=== PATIENT | female | born 1980 | race Caucasian/White ===

== ENCOUNTER 2016-12-06 15:49 | Emergency (ER) | payer OTHER ==
--- NOTE | 2016-12-06 15:58 | ERNOTE ---
Chest Pain/Cardiac HPI Date of Service: 12/06/16 Chief Complaint: Chest Pain Time Seen by Provider: 12/06/16 15:58 Source: patient Exam Limitations: no limitations Immunizations: IMMUNIZATION HX Immunizations Up to Date Yes History of Influenza Vaccine Yes Hx Pneumococcal Vaccination No Allergies/Adverse Reactions: Allergies lactase [From Dairy Aid] Allergy (Mild, Verified 12/06/16 16:13) DAIRY PRODUCTS CAUSE HIVES yeast, dried [yeast] Allergy (Mild, Verified 12/06/16 16:13) Hives alcohol Allergy (Unknown, Verified 12/06/16 16:13) atomoxetine HCl [From Strattera] Adverse Reaction (Intermediate, Verified 16:13) CHEST PAIN, DIZZINESS bupropion HCl [From Wellbutrin] Adverse Reaction (Intermediate, Verified 16:13) SEIZURES gluten Adverse Reaction (Intermediate, Verified 12/06/16 16:13) MIGRAINES, CHEST TIGHTNESS paroxetine HCl [From Paxil] Adverse Reaction (Intermediate, Verified 12/06/16 16 :13) DYSPNEA wheat Adverse Reaction (Intermediate, Verified 12/06/16 16:13) MIGRAINES, CHEST TIGHTNESS amoxicillin trihydrate [From Augmentin] Adverse Reaction (Mild, Verified 16:13) GI DISTRESS potassium clavulanate [From Augmentin] Adverse Reaction (Mild, Verified 16:13) GI DISTRESS Home Medications: HOME MEDICATIONS Cholecalciferol (Vitamin D3) [Vitamin D3] 20,000 mg PO DAILY 04/08/15 [Last Taken 04/10/15] Cyanocobalamin [Vitamin B-12] 1,000 mcg IJ Q15D 04/08/15 [Last Taken 03/30/15] Dexamethasone 1 mg PO BID PRN 04/08/15 [Last Taken Unknown] EPINEPHrine [Epipen] 0.3 mg IM ONCE PRN 04/08/15 [Last Taken Unknown] Fluticasone Propionate [Flonase] 2 spray NS DAILY PRN 02/29/16 [Last Taken Unknown] Ondansetron HCl [Zofran] 1 - 2 tab PO Q8H PRN 02/29/16 [Last Taken Unknown] tiZANidine HCL [Zanaflex] 4 mg PO Q8H PRN 02/29/16 [Last Taken Unknown] Duloxetine HCl [Cymbalta] 60 mg PO DAILY 04/10/16 [Last Taken Unknown] Montelukast Sodium [Singulair] 10 mg PO HS 04/10/16 [Last Taken Unknown] oxyCODONE HCL/ACETAMINOPHEN [Percocet 5 MG/325 MG] 1 tab PO Q6H PRN #20 tablet 05/08/16 [Last Taken Unknown] Ciprofloxacin HCl [Cipro] 500 mg PO BID 12/06/16 [Last Taken Unknown] Metoprolol Tartrate [Lopressor] 50 mg PO BID #30 tablet 12/06/16 [Last Taken Unknown] Topiramate [Topamax] 100 mg PO HS 12/06/16 [Last Taken Unknown] metroNIDAZOLE [Flagyl] 500 mg PO TID 12/06/16 [Last Taken Unknown] Narrative: pt went to [place] over [place] and had what sounds like a gastritis. She had emesis with leonardo of blood and blood mixed in the stool. She has subsequently developed diarrhea that is negative for c.diff and a UTI. She is currently on cipro and flagyl for the UTI and diarrhea. 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 Yest and today she noted SOB with exertion and today at 2:30PM she developed anterior chest pressure. She also noticed that her HR was in the 130s. Pt has h/o SVT usually with that is in the 170s. Pt has been in a walking boot for the past several weeks for a heel fx Date (Duration): 12/06/16 Time (Timing): 14:30 Timing: constant Severity/Quality: moderate, pressure Location: substernal, central Chest Pain Radiation: no radiation Activities at Onset: none Modifying Factors - Improves: Present: breathing, movement Nitro Today/Relief: no nitro taken today Aspirin Treatment Today: no aspirin today Associated Symptoms: Present: dizziness, shortness of breath, palpitations, nausea. Absent: fever/chills, vomiting, abdominal pain, weakness, back pain, swelling/lump in chest Prior Chest Pain/Cardiac Workup: Reports: prior chest pain Review of Systems - Review of Systems Constitutional: Present: weakness, malaise EYE: Present: no symptoms reported ENT: Present: no symptoms reported Respiratory: Present: no symptoms reported, shortness of breath Cardiology: Present: chest pain Gastrointestinal/Abdominal: Present: nausea Genitourinary: Present: no symptoms reported Musculoskeletal: Present: no symptoms reported Skin: Present: no symptoms reported Neurological: Present: no symptoms reported Endocrine: Present: no symptoms reported Hematologic/Lymphatic: Present: no symptoms reported Psych: Present: no symptoms reported - Patient's Past Medical History Patient History - Medical: Anemia, Depression, Seizures Patient History - Cancer: No Hx of Cancer Patient History - Surgical Procedures: Appendectomy, Cholecystectomy, Colonoscopy, D & C, Hysterectomy, Tubal Ligation, Other - Family History Mother Family History - Medical: No pertinent hx, Hypothyroidism Family History - Cardiac/Respiratory: CVA/Stroke, Deep Vein Thrombosis, Hypertension, Hyperlipidemia Father Family History - Medical: No pertinent hx Family History - Cardiac/Respiratory: Coronary Heart Disease, Hypertension, Hyperlipidemia, Sleep Apnea Grandmother-Maternal Family History - Medical: , No pertinent hx Family History - Cardiac/Respiratory: No pertinent hx Grandfather-Maternal Family History - Medical: , No pertinent hx Family History - Cardiac/Respiratory: Atrial Fibrillation, Coronary Heart Disease, CHF, Hypertension, Hyperlipidemia Grandmother-Paternal Family History - Medical: , Diabetes Type 2 Insulin Dependent Family History - Cardiac/Respiratory: Coronary Heart Disease - father has HTN and stents, Other - CVA with mom sec to polycythemia - Social History Living Situations: home Smoking Status: Never smoker Alcohol Use: none Drug Use: none Physical Exam - Physical Exam General Appearance: Present: alert, no apparent distress Eye Exam: Normal inspection: bilateral Ears, Nose, Throat: Present: normal ENT inspection Neck: Present: normal inspection Respiratory: Present: no respiratory distress Cardiovascular/Chest: Present: regular rate, rhythm, no murmur, tachycardia Gastrointestinal/Abdominal: Present: normal bowel sounds, nontender, nondistended, soft Back Exam: Present: normal inspection, normal range of motion, no CVA tenderness Extremity Exam: Present: normal inspection Neurological Exam: Present: alert, oriented, normal mood/affect Skin Exam: Present: normal color Lymphatic Exam: Present: no adenopathy ED Progress - Results and Orders Patient's Lab Results:: I have reviewed the patient's lab results. - Vital Signs Patient's Vital Signs:: I have reviewed the patient's vital signs. - EKG EKG: other - sinus tachycardia 121 BPM. possible old anterior mI and inferior of indeterminate age Plan - Plan Plan: Pt to f/u with PMD. Will add metoprolol to pt regimen Departure - Departure Clinical Impression: Chest pain of unknown etiology, Sinus tachycardia Disposition: Home self-care Condition: Stable Prescriptions: Metoprolol Tartrate [Lopressor] 50 mg PO BID #30 tablet
[2016-12-06] MEDS ORDERED: METOCLOPRAMIDE HCL 5 MG/ML VIAL IV ONE (16:54)
[2016-12-06] MEDS ORDERED: METOCLOPRAMIDE HCL 5 MG/ML VIAL ONE (17:25)
[2016-12-06 17:26] LABS: Hematocrit 43.1 % (37.0-47.0); Hemoglobin 14.7 gm/dL (12.5-16.0); Mean Cell Volume 87.6 fl (78-100); Mean Corpuscular Hemoglobin 29.9 pg (27-31); Mean Corpuscular Hgb Conc 34.1 g/dl (32-36); Neutrophil # 5.3 K/mm3 (1.3-6.0); Neutrophil % 58.8 % (42-75.0); Platelet Count 260 K/mm3 (150-450); Red Blood Count 4.92 M/mm3 (4.2-5.4); Red Cell Distribution Width 12.3 % (11.5-14.0)
[2016-12-06 17:45] LABS: Anion Gap 13.9 mmol/L (6.8-13.8); BUN/Creatinine Ratio 4.3 (9.0-21.6); Blood Urea Nitrogen 4 mg/dL (3-23); Calcium * 9.1 mg/dL (7.9-10.9); Carbon Dioxide 24.4 mmol/L (24-32.6); Chloride 106 mmol/L (97-106); Estimated Creat Clear 81.3; Glucose * 92 mg/dL (70-110); Potassium 3.3 mmol/L (3.4-4.6); Sodium 141 mmol/L (132-142); Troponin I Less than 0.017 ng/ml (0.00-0.10)
[2016-12-06] MEDS ORDERED: NITROGLYCERIN 0.4 MG/TAB BTL SL ONE (18:15)
[2016-12-06] MEDS ORDERED: MORPHINE SULFATE 10 MG/ML SYRG IV ONE (18:33)
[2016-12-06] MEDS ORDERED: MORPHINE SULFATE 10 MG/ML SYRG ONE (18:51)
[2016-12-06] MEDS ORDERED: METOPROLOL TARTRATE 1 MG/ML AMPUL IV ONE ×2 (19:52→19:54)
[2016-12-06 20:26] VITALS: BP 130/97
== END 2016-12-06 20:30 | disposition home or self-care (01) ==
LOC: ER 15:49
DX: R00.0 Tachycardia, unspecified (principal); R07.89 Other chest pain; Z90.710 Acquired absence of both cervix and uterus; Z90.49 Acquired absence of other specified parts of digestive tract; F32.9 Major depressive disorder, single episode, unspecified

== ENCOUNTER 2016-12-28 07:04 | Day surgery (SDC) | payer OTHER ==
[~2016-12-28 07:04] MED LIST: RINGERS SOLUTION,LACTATED 1,000 ML IV PRN
[2016-12-28] MEDS ORDERED: PANTOPRAZOLE SODIUM 40 MG/100 ML PIGGYBACK IV ONE (09:01)
[2016-12-28] MEDS ORDERED: PANTOPRAZOLE SODIUM 40 MG in NORMAL SALINE 100 ML IV ONE (09:15)
--- NOTE | 2016-12-28 09:17 | OR ---
Operative Report - Dictated Report Narrative: Operative Report Date of operation: 12/28/2015 Preoperative diagnosis: Hematemesis. Episode of rectal bleeding. Postoperative diagnosis: GE junction inflammation (pathology pending). Gastropathy with prepyloric erosions (pathology and CLOtest pending). Normal appearing colon to the proximal descending (random biopsy pending). External hemorrhoids Operation: EGD with biopsies. Flexible sigmoidoscopy of the proximal descending colon with random biopsy. Surgeon: Dr Anglin Anesthesia: RAMOS PINEDA CRNA Indications for procedure: The patient is a 36-year-old female presents self referred after an episode of hematemesis and an episode of rectal bleeding. CT scan suggested sigmoid and descending colon thickening. Findings: Possible underlying obstructive sleep apnea. Normal appearing esophagus with inflammation at the GE junction. Gastropathy with prepyloric erosions (pathology and CLOtest pending). Normal appearing duodenum. External hemorrhoids. Normal rectum and colon to the proximal descending colon (random biopsy pending) Narrative of procedure: The patient was identified preoperatively, and prior to the administration of anesthetic a multidisciplinary timeout was observed EGD: With the patient in the recumbent position, a bite-block was placed, intravenous sedation was administered, and the patient's eyes covered with a towel. The flexible fiberoptic gastroscope was advanced into the posterior pharynx which appeared normal. There was crowding of the structures which was relieved with jaw thrust maneuver. The supraglottic larynx appeared normal. The cords appeared normal, moved well, and opposed in the midline. The scope was advanced under direct vision into the proximal esophagus which appeared normal. The esophagus appeared freely distensible with normal mucosa. The esophageal mucosa appeared normal down to the gastroesophageal junction which was sharp with mild inflammation. The GE junction appeared normally distensible. The scope was advanced into the stomach which was insufflated with air. There was moderate garza gastropathy with erythema and multiple prepyloric erosions. The pylorus appeared patent. The scope was advanced into the duodenal bulb which appeared normal. The scope was advanced further to the horizontal portion of the duodenum which appeared normal, specifically the villous architecture appeared well preserved and clear bile was present. The scope was slowly withdrawn through the duodenal bulb with confirmation that no active ulcer was present. The scope was withdrawn into the stomach and kiosk sales representative biopsies of gastric mucosa obtained for CLOtest and pathology. The biopsy sites were seen to be hemostatic. The insufflated air was removed from the stomach, and the scope withdrawn to the GE junction which was biopsied. The biopsy site appeared hemostatic. The scope was withdrawn from the patient, and this portion of the procedure terminated. SIGMOIDOSCOPY: The patient was then placed in the left lateral position, and the perineum was inspected. There was no evidence of pilonidal disease or skin breakdown. The external appearance of the anus was normal with exception of engorged external hemorrhoids. There was no evidence of thrombosis or bleeding. Sphincter tone was good. The flexible fiberoptic colonoscope was inserted into the rectum which was insufflated with air. The rectal mucosa and submucosal vascular pattern appeared normal, the prep was seen to be complete. The scope was advanced through the sigmoid colon, up the descending colon. The mucosa at this level appeared normal. The scope was then slowly withdrawn in a circular fashion so that all aspects of distal colonic mucosa were inspected. The colon was normal in caliber however the folds appeared thickened when non-inflated which could mimic the appearance seen on CT scan.. The haustral architecture appeared well preserved throughout with no evidence of external compression. The mucosa and submucosal vascular pattern appeared normal, specifically there was no gross evidence to suggest colitis or inflammatory bowel disease and no AV malformations were seen. A random colon biopsy was obtained. The biopsy site was seen to be hemostatic. No diverticulosis was demonstrated. No polyps were encountered. The scope was gradually withdrawn to the level of the rectum. As much insufflated air as possible was removed. The scope was withdrawn from the patient and the procedure terminated. The patient tolerated the anesthetic and procedure well without complication and was transferred back to the ambulatory surgery area awake and in stable condition. The patient remained stable throughout a period of postoperative observation. She denied abdominal discomfort, was able to tolerate by mouth intake, and was up without assistance. I shared the operative findings with the patient and she was given copies of the photographs which appear in the medical record. She was given a single dose of Protonix 40 mg IV prior to discharge. She was discharged home with instructions not to engage in hazardous activity today, but may resume normal activity tomorrow, and advance diet as tolerated. She is to continue those medications as listed in the history and physical exam. I made arrangements to contact her with the biopsy reports and will make additional recommendations for treatment and follow-up based upon those results. Reviewed and electronically signed
[2016-12-28 10:06] VITALS: BP 128/83
== END 2016-12-28 07:05 | disposition home or self-care (01) ==
LOC: AMB 07:04
PROVIDERS: ATTEND Surgery
PROC: 0DB68ZX Excision of Stomach, Via Natural or Artificial Opening Endoscopic, Diagnostic (ICD-10-PCS; principal; 2016-12-28 08:00)
PROC: 0DBM8ZX Excision of Descending Colon, Via Natural or Artificial Opening Endoscopic, Diagnostic (ICD-10-PCS; 2016-12-28 08:00)
DX: K29.70 Gastritis, unspecified, without bleeding (principal); K52.9 Noninfective gastroenteritis and colitis, unspecified; K25.9 Gastric ulcer, unspecified as acute or chronic, without hemorrhage or perforation; K64.4 Residual hemorrhoidal skin tags; D50.9 Iron deficiency anemia, unspecified; F32.9 Major depressive disorder, single episode, unspecified; Z68.39 Body mass index [BMI] 39.0-39.9, adult

== ENCOUNTER 2017-01-10 10:23 | Day surgery (SDC) | payer OTHER ==
[~2017-01-10 10:23] MED LIST changes: +ceFAZolin SODIUM 1 GM VIAL IV PRN
[2017-01-10] MEDS ORDERED: SCOPOLAMINE HYDROBROMIDE 1.5 MG PATC TD ONE ×2 (10:56→11:12)
[2017-01-10] MEDS ORDERED: diphenhydrAMINE HCL 50 MG/ML VIAL IV PRN (10:57)
[2017-01-10] MEDS ORDERED: NALOXONE HCL 0.4 MG/ML VIAL IV PRN (10:57)
[2017-01-10] MEDS ORDERED: HYDROmorphone HCL 2 MG/ML VIAL IV PRN ×2 (10:57→15:50)
[2017-01-10] MEDS ORDERED: PROMETHAZINE HCL 12.5 MG in DEXTROSE 5 % IN WATER 50 ML IV PRN ×2 (10:57)
[2017-01-10] MEDS ORDERED: ONDANSETRON HCL/PF 2 MG/ML VIAL IV PRN (10:57)
[2017-01-10] MEDS ORDERED: RINGERS SOLUTION,LACTATED 1,000 ML IV ONE (13:20)
[2017-01-10] MEDS ORDERED: BUPIVACAINE HCL/EPINEPHRINE 50 ML VIAL IJ ONE (14:31)
--- NOTE | 2017-01-10 15:26 | OR ---
Operative Report - Dictated Report Narrative: Date: 01/10/2017 Surgeon: Zheng Reyes M.D. [employer] Teacher: Arcadio Cary PA-C Anesthesia: General plus local anesthesia Preoperative diagnosis: Right chronic ankle instability, chondral lesion of talus, peroneal tenosynovitis Postoperative diagnosis: Right chronic ankle instability, chondral lesion of talus, peroneal tenosynovitis with longitudinal tear of peroneus brevis Procedure: 1. Right ankle arthroscopy with microfracture of the talus 2. Modified Brostrom reconstruction of right ankle 3. Debridement of peroneal tendons with repair of peroneus brevis Estimated blood loss: Minimal Tourniquet time: 92 Minutes at 350 millimeters mercury Retained implants: [employer] 2.9 mm Bioraptor anchors 2, Arthro[employer] 1.8 mm all suture anchors 2 Specimens: None Complications: None Indications: Shellie is a 36-year-old female with a history of chronic ankle sprains and resultant ankle instability. She also had lateral pain consistent with peroneal tenosynovitis. Her physical exam in the office in diagnostic imaging were consistent with chronic ankle instability with concern for a chondral lesion of the talus as well as a possible tear versus tendinopathy of the peroneus brevis. The risks, benefits, and treatment options were discussed with the patient and the plan for right ankle arthroscopy with potential chondroplasty versus microfracture of the talus, modified Brostrom reconstruction of the ankle, and debridement with possible repair of the peroneal tendons was discussed. Risks were reviewed including , blood clots, nerve/tendon/blood vessel injury, malunion, nonunion, failure of implants , prominent implants, arthrosis, persistent pain, need for additional procedures. Procedure: After a timeout, general anesthesia was administered. Beanbag was utilized in order bump the operative leg and a well-padded tourniquet was applied to the operative thigh. The operative leg was then prepped and draped in a standard sterile fashion. The foot of the bed was dropped allowing both legs to flex to 90 at the knee. The operative leg was then exsanguinated and the tourniquet was inflated to 350 mmHg. Longitudinal traction was placed through the operative ankle using a strap and 15 lbs of traction weights through the bottom of the drape which was then sealed with Ioban. The bony landmarks were palpated in the medial arthroscopic portal was drawn out. An 18-gauge needle was placed in the medial shoulder of the joint and the joint was insufflated with 30 mL of lactated Ringer's. A knife was used to make our medial portal incision in the scope sheath and trocar were advanced into the joint. The camera was placed in the joint and initial inspection revealed no obvious pathology. The anterolateral portal was then established using an outside in technique with us with a 18-gauge needle for guidance. We were careful to avoid the supra superficial peroneal nerve which was drawn out prior to making our portal incision. A 2.5 mm shaver was advanced into the joint to clear any blood and debris in the joint. Diagnostic arthroscopy of the ankle joint revealed a approximately 3 x 5 mm chondral lesion of the lateral aspect of the talar dome. The medial and lateral gutters were inspected and no loose bodies were seen the remainder of the talar dome was intact without any chondral lesions or obvious degenerative changes. The 2.5 mm shaver was then used to perform a chondroplasty of this defect down to bleeding bone and stable cartilage borders. Given the lesions location we felt it would be difficult to perform a microfracture arthroscopically and therefore our plan was to directly visualize this lesion during the open portion of the case. Once we felt we had adequately address all intra-articular pathology that we could, all arthroscopic instruments were removed from the joint. The foot of the bed was then brought back up and the knee extended and a towel bump was placed under the operative ankle with the heel free-floating. Attention was then turned to the lateral malleolus. A curvilinear incision was made centered over the distal fibula and curving anteriorly in line with the ATFL approximately 8 cm in length. Careful dissection through the subcutaneous tissues was undertaken with tenotomy scissors. The extensor retinaculum was identified and all of the overlying subcutaneous fat was peeled off of the extensor retinaculum. Next we turned our attention distally to the peroneal tendon sheath this was incised longitudinally starting at the tip of the fibula and going distally to reveal our peroneal tendons. There was a significant amount of adhesions between the tendons more proximally as well as a large amount of inflamed and hypertrophic synovium which was debrided from the tendons. Posterior inspection of the tendons revealed a longitudinal split tear of the peroneus brevis. The peroneus longus was noted to be intact. The longitudinal split tear of the peroneus brevis was then repaired using 3-0 Vicryl. We then turned our attention back to our lateral ankle ligament reconstruction. The anterior to the fibula as well as a lateral process of the talus were palpated and tenotomy scissors were used to punch through the most inferior aspect of the ATFL tissue and then slid underneath the remnant of the ATFL. A scalpel was then used to divide the tissue over the top of the tenotomy scissors leaving a cuff of tissue on the fibula and the remnant of the ATFL attached to the lateral process of the talus. We extended this incision proximally to give us a larger arthrotomy. The ankle was then plantarflexed and inverted to reveal the lateral aspect of the talar dome and the chondral lesion we had seen during the arthroscopic portion of the case. The defect was then microfractured with a small microfracture pick. We then turned our attention back to the Brostrom reconstruction. 21.8 mm all suture anchors were placed on the anterior aspect of the fibula one distally and one more proximally. The suture limbs were then brought through the remnant of the ATFL attached to the talus in a horizontal mattress fashion. These were then tied down with the ankle held in dorsiflexion and eversion. We then augmented our repair with a internal brace construct. This was done by placing suture tape through a 2.9 mm [employer] bio wrapped her anchor in the talus. The 2 free limbs of suture tape were then brought over the ATFL through a second 2.9 mm Bioraptor anchor in the fibula between our 2 previous suture anchors. We then reinforced our reconstruction with interrupted 0 Ethibond in figure-of- eight fashion incorporating the extensor retinaculum into the repair. After our reconstruction, the ankle was noted to have no anterior drawer and no significant talar tilt. At this point we felt we had achieved an excellent repair and the wounds were then thoroughly irrigated. The wound was then closed in layered fashion using 3-0 Vicryl in an interrupted deep dermal fashion followed by 4-0 nylon in interrupted horizontal fashion to close the skin. The arthroscopic portal sites were closed with 4-0 nylon. The wounds were dressed with xeroform, 4 x 4's, soft roll, and a well-padded AO splint was applied. Patient was then awoken and transferred to postanesthesia care in stable condition. All sponge, sharp, and instrument counts were correct prior to closing the wounds.
[2017-01-10] MEDS ORDERED: oxyCODONE HCL/ACETAMINOPHEN 1 TAB TABLET PO PRN (15:48)
[2017-01-10] MEDS ORDERED: RINGERS SOLUTION,LACTATED 1,000 ML IV PRN (15:51)
[2017-01-10 17:32] VITALS: BP 138/73
== END 2017-01-10 10:24 | disposition home or self-care (01) ==
LOC: AMB 10:23
PROVIDERS: ATTEND Orthopaedic Surgery
PROC: 0LMS0ZZ Reattachment of Right Ankle Tendon, Open Approach (ICD-10-PCS; 2017-01-10)
PROC: [UNRECOGNIZED PROCEDURE] (2017-01-10)
PROC: 0SBF4ZZ Excision of Right Ankle Joint, Percutaneous Endoscopic Approach (ICD-10-PCS; principal; 2017-01-10 12:10)
DX: M25.371 Other instability, right ankle (principal); M65.871 Other synovitis and tenosynovitis, right ankle and foot; M25.871 Other specified joint disorders, right ankle and foot; S96.811A Strain of other specified muscles and tendons at ankle and foot level, right foot, initial encounter; D50.9 Iron deficiency anemia, unspecified; F32.9 Major depressive disorder, single episode, unspecified; E53.8 Deficiency of other specified B group vitamins; E55.9 Vitamin D deficiency, unspecified; Z68.37 Body mass index [BMI] 37.0-37.9, adult

== ENCOUNTER 2017-01-13 10:57 | Emergency (ER) | payer OTHER ==
[2017-01-13] MEDS ORDERED: PROMETHAZINE HCL 25 MG in DEXTROSE 5 % IN WATER 50 ML IV ONE ×2 (11:47)
[2017-01-13] MEDS ORDERED: MORPHINE SULFATE 4 MG/ML SYRG IV ONE (11:48)
[2017-01-13 12:01] LABS: Hematocrit 44.4 % (37.0-47.0); Hemoglobin 14.4 gm/dL (12.5-16.0); Mean Cell Volume 91.2 fl (78-100); Mean Corpuscular Hemoglobin 29.6 pg (27-31); Mean Corpuscular Hgb Conc 32.4 g/dl (32-36); Mean Platelet Volume 9.9 fl (6.0-9.5); Neutrophil # 9.4 K/mm3 (1.3-6.0); Neutrophil % 74.3 % (42-75.0); Platelet Count 256 K/mm3 (150-450); Red Blood Count 4.87 M/mm3 (4.2-5.4); Red Cell Distribution Width 12.3 % (11.5-14.0); White Blood Count 12.6 K/mm3 (4.0-10.5)
[2017-01-13 12:14] LABS: Albumin * 3.7 gm/dl (3.4-5.0); Anion Gap 12.7 mmol/L (6.8-13.8); BUN/Creatinine Ratio 9.1 (9.0-21.6); Bilirubin, Total 0.4 mg/dL (0.0-1.1); Ca. Corrected For Albumin 9.1 mg/dL (8.4-10.2); Calcium * 9.2 mg/dL (7.9-10.9); Carbon Dioxide 27.6 mmol/L (24-32.6); Potassium 3.3 mmol/L (3.4-4.6); Total Protein 7.6 gm/dL (6.2-8.2)
[2017-01-13] MEDS ORDERED: MORPHINE SULFATE 4 MG/ML SYRG ONE (12:44)
[2017-01-13 12:52] VITALS: BP 146/98
[2017-01-13] MEDS ORDERED: NORMAL SALINE 1,000 ML IV ONE (13:21)
[2017-01-13] MEDS ORDERED: MORPHINE SULFATE 2 MG/ML DISP.SYRIN IV ONE (13:50)
[2017-01-13] MEDS ORDERED: MORPHINE SULFATE 2 MG/ML DISP.SYRIN ONE (13:52)
[2017-01-13 15:38] LABS: Urine Appearance Clear; Urine Bilirubin Negative (NEGATIVE); Urine Blood Negative /ul (NEGATIVE); Urine Color Yellow; Urine Ketone Negative (NEGATIVE)
[2017-01-13 15:39] LABS: Urine Bacteria 1+; Urine Nitrite Negative (NEGATIVE); Urine Protein Negative (NEGATIVE); Urine RBC None Seen /hpf (0-5); Urine Specific Gravity 1.015 SP.GR. (1.005-1.010); Urine Urobilinogen Normal (NORMAL); Urine WBC 0-5 /hpf (0-5)
--- NOTE | 2017-01-13 16:33 | ERNOTE ---
Medical Problem HPI - Narrative Date of Service: 01/13/17 - General Chief Complaint: Nausea/Vomiting Time Seen by Provider: 01/13/17 11:37 Source: patient Exam Limitations: no limitations - Immun/Allergies/Home Medications Immunizations: IMMUNIZATION HX Immunizations Up to Date Yes History of Influenza Vaccine Yes Hx Pneumococcal Vaccination No Allergies/Adverse Reactions: Allergies lactase [From Dairy Aid] Allergy (Mild, Verified 01/13/17 11:26) DAIRY PRODUCTS CAUSE HIVES yeast, dried [yeast] Allergy (Mild, Verified 01/13/17 11:26) Hives alcohol Allergy (Unknown, Verified 01/13/17 11:26) hives, topical okay bupropion HCl [From Wellbutrin] Adverse Reaction (Severe, Verified 01/13/17 11: 26) SEIZURES atomoxetine HCl [From Strattera] Adverse Reaction (Intermediate, Verified 11:26) CHEST PAIN, DIZZINESS gluten Adverse Reaction (Intermediate, Verified 01/13/17 11:26) MIGRAINES, CHEST TIGHTNESS paroxetine HCl [From Paxil] Adverse Reaction (Intermediate, Verified 01/13/17 11 :26) DYSPNEA wheat Adverse Reaction (Intermediate, Verified 01/13/17 11:26) MIGRAINES, CHEST TIGHTNESS amoxicillin trihydrate [From Augmentin] Adverse Reaction (Mild, Verified 11:26) GI DISTRESS potassium clavulanate [From Augmentin] Adverse Reaction (Mild, Verified 11:26) GI DISTRESS Home Medications: HOME MEDICATIONS Cholecalciferol (Vitamin D3) [Vitamin D3] 20,000 mg PO DAILY 04/08/15 [Last Taken 01/09/17] Cyanocobalamin [Vitamin B-12] 1,000 mcg IJ Q15D 04/08/15 [Last Taken 01/09/17] EPINEPHrine [Epipen] 0.3 mg IM ONCE PRN 04/08/15 [Last Taken Unknown] Fluticasone Propionate [Flonase] 2 spray NS DAILY PRN 02/29/16 [Last Taken 01/09] Ondansetron HCl [Zofran] 1 - 2 tab PO Q8H PRN 02/29/16 [Last Taken Unknown] tiZANidine HCL [Zanaflex] 4 mg PO Q8H PRN MDD 3 DOSES/24 HR 03/30/16 [Last Taken 01/09/17] Duloxetine HCl [Cymbalta] 120 mg PO DAILY 04/10/16 [Last Taken 01/09/17] Montelukast Sodium [Singulair] 10 mg PO HS 04/10/16 [Last Taken 01/09/17] oxyCODONE HCL/ACETAMINOPHEN [Percocet 5 MG/325 MG] 1 tab PO Q6H PRN #20 tablet 05/08/16 [Last Taken 01/09/17 1 TAB] Polyethylene Glycol 3350 [Miralax] 17 gm PO DAILY 12/25/16 [Last Taken 01/09/17] Fluconazole [Diflucan] 150 mg PO Q2D 01/07/17 [Last Taken 01/09/17] Metronidazole [Metrogel-Vaginal] 1 appful VG HS 01/07/17 [Last Taken 01/09/17] oxyCODONE HCL [Oxycodone] 1 - 3 tab PO Q3H PRN #120 tab 01/10/17 [Last Taken Unknown] Promethazine HCl [Phenergan] 25 mg PO QID PRN #12 tablet 01/13/17 [Last Taken Unknown] - History of Present History Narrative: Patient presents to the ED for vomiting and diarrhea. She relates this started this morning and she has vomited 10 times. She has had some mild abdominal cramping. THis has been accompanied by watery diarrhea. No blood in vomit or stool. No Cp or SOB. She couldn't keep her painmeds down so she would like something for her ankle pain (post-op). No bad food exposures. There have been several people with similar presentations in thelast 2 days. No fever. Nothing seems to make this better or worse. She has not seen anyone else for this. Timing: constant Modifying Factors - (Improves): Present: other - nothing Modifying Factors - (Worsens): Present: other - nothing Review of Systems - Review of Systems Constitutional: Absent: fever ENT: Present: no symptoms reported Respiratory: Absent: shortness of breath Cardiology: Absent: chest pain Gastrointestinal/Abdominal: Present: See HPI Genitourinary: Absent: dysuria Musculoskeletal: Present: other - recent right ankle surgert Skin: Absent: rash Neurological: Absent: weakness - Patient's Past Medical History Patient History - Medical: Anemia, Depression, Seizures, Other Patient History - Cardiac/Respiratory: Other Patient History - Cancer: No Hx of Cancer Patient History - Surgical Procedures: Appendectomy, Cholecystectomy, Colonoscopy, D & C, Hysterectomy, Tubal Ligation, Other Patient History - Other: None LMP (Calendar): 02/23/16 - Family History Mother Family History - Medical: No pertinent hx, Hypothyroidism, Other Family History - Cardiac/Respiratory: CVA/Stroke, Deep Vein Thrombosis, Hypertension, Hyperlipidemia Family History - Cancer: No pertinent family hx Father Family History - Medical: No pertinent hx Family History - Cardiac/Respiratory: Coronary Heart Disease, Deep Vein Thrombosis, Hypertension, Hyperlipidemia Family History - Cancer: No pertinent family hx Grandmother-Maternal Family History - Medical: , No pertinent hx Family History - Cardiac/Respiratory: No pertinent hx Family History - Cancer: No pertinent family hx Grandfather-Maternal Family History - Medical: , Alcohol Abuse Family History - Cardiac/Respiratory: Atrial Fibrillation, Coronary Heart Disease Family History - Cancer: No pertinent family hx Grandmother-Paternal Family History - Medical: , Diabetes Type 2 Family History - Cardiac/Respiratory: No pertinent hx Family History - Cancer: Lymphoma - Social History Living Situations: home Abuse History: No History of abuse Psych History: Hx of Depression, Current tx/ever been on anti-depressants or anti-anxiety meds Alcohol Use: rarely Drug Use: none - Immunizations Immunizations Up to Date: Yes Hx Pneumococcal Vaccination: No History of Influenza Vaccine: Yes Physical Exam - Physical Exam General Appearance: Present: alert, no apparent distress Eye Exam: Normal inspection: bilateral, PERRL: bilateral Ears, Nose, Throat: Present: normal ENT inspection Neck: Present: normal inspection Respiratory: Present: no respiratory distress, no accessory muscle use, lungs clear Cardiovascular/Chest: Present: regular rate, rhythm Gastrointestinal/Abdominal: Present: normal bowel sounds, nondistended, soft. Absent: tenderness Back Exam: Present: normal range of motion Extremity Exam: Present: other - right LE splint in place postoperatively Neurological Exam: Present: alert, normal mood/affect, no motor/sensory deficits Skin Exam: Absent: skin rash ED Progress - Results and Orders Patient's Lab Results:: I have reviewed the patient's lab results. - Vital Signs Patient's Vital Signs:: I have reviewed the patient's vital signs. Vital Signs: Vital Signs 02/11/1701/13/17 01/13/17 11:18 12:17 12:51 Temperature 36.0 C L Pulse Rate 90 91 93 Respiratory 12 16 16 Rate Blood Pressure 139/92 138/89 146/98 O2 Sat by Pulse 98 96 99 Oximetry - Progress/Reassessment Chief Complaint: Nausea/Vomiting Progress Note-Subjective: 01/13/17 16:28 No further vomiting. Still with diarrhea. 2L NS given. She feels like going home. Clinically viral gastroenteritis pattern. No tenderness in lexis abdomen. Nothing would suggest need for CT. I discussed warning signs and reasons to return as well as the need for close f/u. Departure - Departure Clinical Impression: Vomiting, Diarrhea Disposition: Home self-care Condition: Stable Instructions: Viral Gastroenteritis, Adult, [id number] Additional Instructions: Rest. Fluids. Anti-nausea medications as directed. Follow-up with your doctor in 2 days for a re-check. Return for vomiting, fever, abdominal pain, blood in stool or if your condition worsens or changes in any way. Referrals: Tyler Turpin DO [Primary Care Provider] - Prescriptions: Promethazine HCl [Phenergan] 25 mg PO QID PRN #12 tablet PRN Reason: Nausea
== END 2017-01-13 16:40 | disposition home or self-care (01) ==
LOC: ER 10:57
DX: R11.10 Vomiting, unspecified (principal); R19.7 Diarrhea, unspecified; F41.9 Anxiety disorder, unspecified

== ENCOUNTER 2017-03-18 16:38 | Emergency (ER) | payer OTHER ==
[2017-03-18] MEDS ORDERED: oxyCODONE HCL/ACETAMINOPHEN 1 TAB TABLET PO ONE (17:53)
[2017-03-18 18:01] LABS: Hematocrit 42.8 % (37.0-47.0); Hemoglobin 14.1 gm/dL (12.5-16.0); Mean Cell Volume 89.4 fl (78-100); Mean Corpuscular Hemoglobin 29.4 pg (27-31); Mean Corpuscular Hgb Conc 32.9 g/dl (32-36); Mean Platelet Volume 10.4 fl (6.0-9.5); Neutrophil # 4.1 K/mm3 (1.3-6.0); Neutrophil % 47.2 % (42-75.0); Platelet Count 315 K/mm3 (150-450); Red Blood Count 4.79 M/mm3 (4.2-5.4); Red Cell Distribution Width 12.9 % (11.5-14.0); White Blood Count 8.7 K/mm3 (4.0-10.5)
--- NOTE | 2017-03-18 18:05 | ERNOTE ---
Lower Extremity HPI - General Lower Extremities Pain: ankle: right Time Seen by Provider: 03/18/17 17:38 Source: patient Exam Limitations: no limitations - Immun/Allergies/Home Medications Immunizations: IMMUNIZATION HX Immunizations Up to Date No History of Influenza Vaccine Yes Hx Pneumococcal Vaccination No Allergies/Adverse Reactions: Allergies Allergy/AdvReac Type Severity Reaction Status Date / Time lactase [From Dairy Aid] Allergy Mild DAIRY Verified 03/18/17 16:59 PRODUCTS CAUSE HIVES yeast, dried [yeast] Allergy Mild Hives Verified 03/18/17 16:59 alcohol Allergy Unknown Verified 03/18/17 16:59 bupropion HCl AdvReac Severe SEIZURES Verified 03/18/17 16:59 [From Wellbutrin] atomoxetine HCl AdvReac Intermediate CHEST Verified 03/18/17 16:59 [From Strattera] PAIN, DIZZINESS gluten AdvReac Intermediate MIGRAINES, Verified 03/18/17 16:59 CHEST TIGHTNESS paroxetine HCl [From Paxil] AdvReac Intermediate DYSPNEA Verified 03/18/17 16:59 wheat AdvReac Intermediate MIGRAINES, Verified 03/18/17 16:59 CHEST TIGHTNESS amoxicillin trihydrate AdvReac Mild GI DISTRESS Verified 03/18/17 16:59 [From Augmentin] potassium clavulanate AdvReac Mild GI DISTRESS Verified 03/18/17 16:59 [From Augmentin] Home Medications: HOME MEDICATIONS Cholecalciferol (Vitamin D3) [Vitamin D3] 20,000 mg PO DAILY 04/08/15 [Last Taken 01/09/17] Cyanocobalamin [Vitamin B-12] 1,000 mcg IJ Q15D 04/08/15 [Last Taken 01/09/17] EPINEPHrine [Epipen] 0.3 mg IM ONCE PRN 04/08/15 [Last Taken Unknown] Fluticasone Propionate [Flonase] 2 spray NS DAILY PRN 02/29/16 [Last Taken 01/09] tiZANidine HCL [Zanaflex] 4 mg PO Q8H PRN MDD 3 DOSES/24 HR 02/29/16 [Last Taken 01/09/17] Duloxetine HCl [Cymbalta] 120 mg PO DAILY 04/10/16 [Last Taken 01/09/17] Montelukast Sodium [Singulair] 10 mg PO HS 04/10/16 [Last Taken 01/09/17] oxyCODONE HCL/ACETAMINOPHEN [Percocet 5 MG/325 MG] 1 tab PO Q6H PRN #20 tablet 05/08/16 [Last Taken 03/18/17 14:00] Topiramate [Topamax] 100 mg PO DAILY 01/14/17 [Last Taken Unknown] Metoprolol Succinate [Toprol Xl] 25 mg PO DAILY 02/21/17 [Last Taken Unknown] Rivaroxaban [Xarelto] 20 mg PO DAILY 03/18/17 [Last Taken Unknown] - History of Present Illness Narrative: Patient is here as she is concerned about having a DVT. She had reconstructive ankle surgery early January, had a wound infection afterwards that was treated with IV vancomycin. The wound infection has resolved and she was cleared by her doctor last week. While having a PICline she developed a DVT in her left brachial vein on 02/25 and was started on Xarelto. Her swelling and symptoms resolved. Over the last week she has had more pain and swelling in her right ankle and lower leg (which had resolved since the surgery). She denies any new injury and has been less active over the last week, is still on Xarelto. While driving earlier she had chest pressure (central ,radiating to back and neck) that lasted for about 20 minutes, no other associated symptoms, symptoms have resolved. Review of Systems - Review of Systems Constitutional: Present: recent illness. Absent: fever, chills ENT: Absent: nose congestion, nasal drainage, sore throat Respiratory: Absent: shortness of breath Cardiology: Present: chest pain. Absent: palpitations Gastrointestinal/Abdominal: Present: diarrhea - chronic intermittent. Absent: nausea, vomiting Genitourinary: Present: no symptoms reported Skin: Absent: rash Neurological: Absent: headache, weakness, numbness - Patient's Past Medical History Patient History - Medical: Anemia, Depression, GERD, Seizures, Other - colitis Patient History - Cardiac/Respiratory: Other Patient History - Cancer: No Hx of Cancer Patient History - Surgical Procedures: Appendectomy, Cholecystectomy, Colonoscopy, D & C, Hysterectomy, Tubal Ligation, Other Patient History - Other: None LMP (Calendar): 02/23/16 - Family History Mother Family History - Medical: No pertinent hx, Hypothyroidism, Other Family History - Cardiac/Respiratory: CVA/Stroke, Deep Vein Thrombosis, Hypertension, Hyperlipidemia Family History - Cancer: No pertinent family hx Father Family History - Medical: No pertinent hx Family History - Cardiac/Respiratory: Coronary Heart Disease, Deep Vein Thrombosis, Hypertension, Hyperlipidemia Family History - Cancer: No pertinent family hx Grandmother-Maternal Family History - Medical: , No pertinent hx Family History - Cardiac/Respiratory: No pertinent hx Family History - Cancer: No pertinent family hx Grandfather-Maternal Family History - Medical: , Alcohol Abuse Family History - Cardiac/Respiratory: Atrial Fibrillation, Coronary Heart Disease Family History - Cancer: No pertinent family hx Grandmother-Paternal Family History - Medical: , Diabetes Type 2 Family History - Cardiac/Respiratory: No pertinent hx Family History - Cancer: Lymphoma - Social History Living Situations: home Abuse History: No History of abuse Psych History: Hx of Depression, Current tx/ever been on anti-depressants or anti-anxiety meds Smoking Status: Never smoker Alcohol Use: rarely Drug Use: none - Immunizations Immunizations Up to Date: No Hx Pneumococcal Vaccination: No History of Influenza Vaccine: Yes Physical Exam - Physical Exam General Appearance: Present: wd/wn, alert, no apparent distress Respiratory: Present: no respiratory distress, normal breath sounds, no accessory muscle use, chest nontender, lungs clear Cardiovascular/Chest: Present: regular rate, rhythm, no murmur Gastrointestinal/Abdominal: Present: normal bowel sounds, nontender, nondistended Extremity Exam: Present: normal except - - right ankle edema, calf tenderness - right, other - well healing scar on right lateral ankle, no erythema, no increased temp Neurological Exam: Present: alert, oriented, normal mood/affect, no motor/ sensory deficits Skin Exam: Present: normal color, warm/dry ED Progress - Results and Orders Patient's Lab Results:: I have reviewed the patient's lab results. - Vital Signs Patient's Vital Signs:: I have reviewed the patient's vital signs. Vital Signs: Vital Signs 03/18/17 16:46 Temperature 36.3 C L Pulse Rate 89 Respiratory 18 Rate Blood Pressure 120/60 O2 Sat by Pulse 100 Oximetry - EKG EKG: NSR EKG read: Interp. by sd - CT/Ultrasound CT/Ultrasound Narrative: venous doppler: no DVT - Progress/Reassessment Chief Complaint: Lower Extremity Pain/ Injury Progress Note-Subjective: 03/18/17 19:10 discussed lab and ultrasound results, complaining of migraine headache, will treat with reglan and benadryl Departure Clinical Impression: Chest pain of unknown etiology, Leg edema, right - Departure Disposition: Home self-care Condition: Good Instructions: Edema, [id number] Additional Instructions: call your orthopedic doctor to discuss the increased pain in your ankle Referrals: Tyler Turpin DO [Primary Care Provider] - Zheng Reyes MD [Staff Physician] -
[2017-03-18] MEDS ORDERED: oxyCODONE HCL/ACETAMINOPHEN 1 TAB TABLET ONE (18:09)
[2017-03-18 18:19] LABS: ALT 41 U/L (19-67); AST 22 U/L (0-48); Albumin * 3.5 gm/dl (3.4-5.0); Alkaline Phosphatase * 106 U/L (50-170); Anion Gap 13.7 mmol/L (6.8-13.8); BUN/Creatinine Ratio 10.7 (9.0-21.6); Bilirubin, Total 0.3 mg/dL (0.0-1.1); Blood Urea Nitrogen 8 mg/dL (3-23); Ca. Corrected For Albumin 8.7 mg/dL (8.4-10.2); Calcium * 8.6 mg/dL (7.9-10.9); Carbon Dioxide 25.5 mmol/L (24-32.6); Chloride 105 mmol/L (97-106); Glucose * 97 mg/dL (70-110); Potassium 4.2 mmol/L (3.4-4.6); Sodium 140 mmol/L (132-142); Total Protein 7.8 gm/dL (6.2-8.2); Troponin I Less than 0.017 ng/ml (0.00-0.10)
[2017-03-18 19:00] VITALS: BP 129/73
[2017-03-18] MEDS ORDERED: PROMETHAZINE HCL 50 MG/ML AMPUL IM ONE (19:18)
[2017-03-18] MEDS ORDERED: METOCLOPRAMIDE HCL 5 MG/ML VIAL ONE (19:19)
[2017-03-18] MEDS ORDERED: diphenhydrAMINE HCL 50 MG/ML VIAL ONE (19:23)
[2017-03-18] MEDS ORDERED: diphenhydrAMINE HCL 50 MG/ML VIAL IM ONE (19:24)
[2017-03-18] MEDS ORDERED: METOCLOPRAMIDE HCL 5 MG/ML VIAL IM ONE (19:24)
== END 2017-03-18 19:32 | disposition home or self-care (01) ==
LOC: ER 16:38
DX: R07.9 Chest pain, unspecified (principal); R60.0 Localized edema; G40.409 Other generalized epilepsy and epileptic syndromes, not intractable, without status epilepticus; F32.89 Other specified depressive episodes

== ENCOUNTER 2017-04-17 06:27 | Emergency (ER) | payer OTHER ==
[2017-04-17] MEDS ORDERED: METHYLPREDNISOLONE SOD SUCC/PF 125 MG/2 ML VIAL IV ONE (07:36)
[2017-04-17] MEDS ORDERED: ONDANSETRON HCL/PF 2 MG/ML VIAL IV ONE (07:36)
--- NOTE | 2017-04-17 07:37 | ERNOTE ---
<Dionicio Hoang - Last Filed: 04/17/17 08:07> Headache ER HPI - General Presenting Symptoms: headache Time Seen by Provider: 04/17/17 07:14 Source: patient - Immun/Allergies/Home Medications Immunizations: IMMUNIZATION HX Immunizations Up to Date No History of Influenza Vaccine Yes Hx Pneumococcal Vaccination No Allergies/Adverse Reactions: Allergies lactase [From Dairy Aid] Allergy (Mild, Verified 04/17/17 06:36) DAIRY PRODUCTS CAUSE HIVES yeast, dried [yeast] Allergy (Mild, Verified 04/17/17 06:36) Hives alcohol Allergy (Unknown, Verified 04/17/17 06:36) hives, topical okay bupropion HCl [From Wellbutrin] Adverse Reaction (Severe, Verified 04/17/17 06: 36) SEIZURES atomoxetine HCl [From Strattera] Adverse Reaction (Intermediate, Verified 06:36) CHEST PAIN, DIZZINESS gluten Adverse Reaction (Intermediate, Verified 04/17/17 06:36) MIGRAINES, CHEST TIGHTNESS paroxetine HCl [From Paxil] Adverse Reaction (Intermediate, Verified 04/17/17 06 :36) DYSPNEA wheat Adverse Reaction (Intermediate, Verified 04/17/17 06:36) MIGRAINES, CHEST TIGHTNESS amoxicillin trihydrate [From Augmentin] Adverse Reaction (Mild, Verified 06:36) GI DISTRESS potassium clavulanate [From Augmentin] Adverse Reaction (Mild, Verified 06:36) GI DISTRESS Home Medications: HOME MEDICATIONS Cholecalciferol (Vitamin D3) [Vitamin D3] 20,000 mg PO DAILY 04/08/15 [Last Taken 01/09/17] Cyanocobalamin [Vitamin B-12] 1,000 mcg IJ Q15D 04/08/15 [Last Taken 01/09/17] EPINEPHrine [Epipen] 0.3 mg IM ONCE PRN 04/08/15 [Last Taken Unknown] Fluticasone Propionate [Flonase] 2 spray NS DAILY PRN 02/29/16 [Last Taken 01/09] tiZANidine HCL [Zanaflex] 4 mg PO Q8H PRN MDD 3 DOSES/24 HR 02/29/16 [Last Taken 01/09/17] Duloxetine HCl [Cymbalta] 120 mg PO DAILY 05/10/16 [Last Taken 01/09/17] Montelukast Sodium [Singulair] 10 mg PO HS 04/10/16 [Last Taken 01/09/17] oxyCODONE HCL/ACETAMINOPHEN [Percocet 5 MG/325 MG] 1 tab PO Q6H PRN #20 tablet 05/08/16 [Last Taken 03/18/17 14:00] Topiramate [Topamax] 100 mg PO DAILY 01/14/17 [Last Taken Unknown] Metoprolol Succinate [Toprol Xl] 25 mg PO DAILY 02/21/17 [Last Taken Unknown] Rivaroxaban [Xarelto] 20 mg PO DAILY 03/18/17 [Last Taken Unknown] - Pain Pain Score: 10 - History of Present Illness Narrative: headache off and on through the weekend and then constant and increasing for the past 2 days. Started around her right eye and progressed to whole head pain. Denies any aura with her headaches. Has not had many headaches since August when she was started on topamax for preventive Timing of Headache: gradual, constant, worse Quality: Present: throbbing Severity Maximum: Present: severe Severity-Currently: Present: severe Headache frequency: Present: no recent headache Modifying Factors - (Improves): Reports: other - nothing Modifying Factors - (Worsens): Reports: movement, exposure to light Associated Symptoms: Reports: nausea Exacerbated by:: Reports: light, noise, movement Review of Systems - Review of Systems Constitutional: Absent: recent illness, fever EYE: Present: blurred vision - intermittently. Absent: eye pain ENT: Present: no symptoms reported Respiratory: Present: no symptoms reported Cardiology: Present: no symptoms reported Gastrointestinal/Abdominal: Present: nausea. Absent: vomiting, abdominal pain Genitourinary: Present: other - one episode of vaginal bleeding 10 days ago and has had nothing else Musculoskeletal: Absent: back pain, neck pain Skin: Present: rash - appeared on right foot Saturday, no pain or itching Neurological: Present: See HPI Endocrine: Present: no symptoms reported Hematologic/Lymphatic: Present: easy bruising, easy bleeding Psych: Present: no symptoms reported - Patient's Past Medical History Patient History - Medical: Anemia, Depression, GERD, Seizures, Other Patient History - Cardiac/Respiratory: Deep Vein Thrombosis, Other Patient History - Cancer: No Hx of Cancer Patient History - Surgical Procedures: Appendectomy, Cholecystectomy, Colonoscopy, D & C, Hysterectomy, Tubal Ligation, Other Patient History - Other: None LMP (Calendar): 02/23/16 - Family History Mother Family History - Medical: No pertinent hx, Hypothyroidism, Other Family History - Cardiac/Respiratory: CVA/Stroke, Deep Vein Thrombosis, Hypertension, Hyperlipidemia Family History - Cancer: No pertinent family hx Father Family History - Medical: No pertinent hx Family History - Cardiac/Respiratory: Coronary Heart Disease, Deep Vein Thrombosis, Hypertension, Hyperlipidemia Family History - Cancer: No pertinent family hx Grandmother-Maternal Family History - Medical: , No pertinent hx Family History - Cardiac/Respiratory: No pertinent hx Family History - Cancer: No pertinent family hx Grandfather-Maternal Family History - Medical: , Alcohol Abuse Family History - Cardiac/Respiratory: Atrial Fibrillation, Coronary Heart Disease Family History - Cancer: No pertinent family hx Grandmother-Paternal Family History - Medical: , Diabetes Type 2 Family History - Cardiac/Respiratory: No pertinent hx Family History - Cancer: Lymphoma - Social History Living Situations: home Abuse History: No History of abuse Psych History: Hx of Depression, Current tx/ever been on anti-depressants or anti-anxiety meds Smoking Status: Never smoker Have you smoked in the past 12 months: No Alcohol Use: rarely Drug Use: none - Immunizations Immunizations Up to Date: No Hx Pneumococcal Vaccination: No History of Influenza Vaccine: Yes Physical Exam - Physical Exam General Appearance: Present: wd/wn, alert, no apparent distress Eye Exam: Normal inspection: bilateral, PERRL: bilateral, EOMI: bilateral Neck: Present: normal inspection, nontender, supple, full range of motion Respiratory: Present: no respiratory distress, normal breath sounds, lungs clear Cardiovascular/Chest: Present: regular rate, rhythm, no murmur Back Exam: Present: normal inspection, normal range of motion Extremity Exam: Present: normal inspection, normal range of motion, no edema Neurological Exam: Present: alert, oriented, normal mood/affect Skin Exam: Present: warm/dry, skin rash - right foot petechiae on dorsum of foot , non-palpable Lymphatic Exam: Present: no adenopathy ED Progress - Vital Signs Vital Signs: Vital Signs 04/17/17 06:32 Temperature 37 C Pulse Rate 82 Respiratory 14 Rate Blood Pressure 153/118 O2 Sat by Pulse 95 Oximetry - Progress/Reassessment Chief Complaint: Headache - Transfer of Care Physician Sign Out: Dionicio Hoang Receiving Physician: Shanthi Yeh Pending Results: CT/MRI results, Labs, Pain-control Expected Disposition: Discharge Departure Clinical Impression: Migraine Qualifiers: Migraine type: unspecified Status migrainosus presence: without status migrainosus Intractability: not intractable Qualified Code(s): G43.909 - Migraine, unspecified, not intractable, without status migrainosus - Departure Disposition: Home self-care Condition: Good Instructions: Recurrent Migraine Headache, [id number], Form - Excuse from Work, School, or Physical Activity Referrals: Tyler Turpin DO [Primary Care Provider] - <Shanthi Yeh - Last Filed: 04/17/17 10:15> Headache ER HPI - Immun/Allergies/Home Medications Immunizations: IMMUNIZATION HX Immunizations Up to Date No History of Influenza Vaccine Yes Hx Pneumococcal Vaccination No Review of Systems - Review of Systems Constitutional: Absent: fever, chills EYE: Present: blurred vision. Absent: double vision Respiratory: Absent: shortness of breath Cardiology: Absent: chest pain Gastrointestinal/Abdominal: Present: nausea. Absent: vomiting Musculoskeletal: Absent: back pain, neck pain Neurological: Present: See HPI, headache. Absent: weakness, numbness Physical Exam - Physical Exam General Appearance: Present: wd/wn, alert, no apparent distress Eye Exam: Normal inspection: bilateral Neck: Present: normal inspection, supple, full range of motion Respiratory: Present: no respiratory distress, normal breath sounds, lungs clear Cardiovascular/Chest: Present: regular rate, rhythm, no murmur Neurological Exam: Present: alert, oriented, normal mood/affect, no motor/ sensory deficits Skin Exam: Present: warm/dry ED Progress - Results and Orders Patient's Lab Results:: I have reviewed the patient's lab results. - Vital Signs Patient's Vital Signs:: I have reviewed the patient's vital signs. Vital Signs: Vital Signs 04/17/17 04/17/17 04/17/17 06:32 06:48 07:02 Temperature 37 C Pulse Rate 82 84 83 Respiratory 14 Rate Blood Pressure 153/118 118/79 118/87 O2 Sat by Pulse 95 93 92 Oximetry 04/17/17 07:18 Temperature Pulse Rate 87 Respiratory Rate Blood Pressure 125/77 O2 Sat by Pulse 93 Oximetry - CT/Ultrasound CT/Ultrasound Narrative: CT head: no acute findings - Progress/Reassessment Progress Note-Subjective: 04/17/17 08:27 reviewed history, patient rates headache 07/11, nausea, no vomiting 04/17/17 08:[address] and lab findings with patient 04/17/17 09:09 feeling better, ready to go home
[2017-04-17] MEDS ORDERED: METHYLPREDNISOLONE SOD SUCC/PF 125 MG/2 ML VIAL ONE (07:51)
[2017-04-17] MEDS ORDERED: ONDANSETRON HCL/PF 2 MG/ML VIAL ONE (07:51)
[2017-04-17 07:58] LABS: Hematocrit 45.9 % (37.0-47.0); Hemoglobin 15.4 gm/dL (12.5-16.0); Mean Cell Volume 88.8 fl (78-100); Mean Corpuscular Hemoglobin 29.8 pg (27-31); Mean Corpuscular Hgb Conc 33.6 g/dl (32-36); Mean Platelet Volume 9.9 fl (6.0-9.5); Neutrophil # 5.9 K/mm3 (1.3-6.0); Neutrophil % 53.1 % (42-75.0); Platelet Count 328 K/mm3 (150-450); Red Blood Count 5.17 M/mm3 (4.2-5.4); Red Cell Distribution Width 13.3 % (11.5-14.0); White Blood Count 11.1 K/mm3 (4.0-10.5)
[2017-04-17 08:11] LABS: ALT 31 U/L (19-67); AST 15 U/L (0-48); Albumin * 3.5 gm/dl (3.4-5.0); Alkaline Phosphatase * 126 U/L (50-170); Anion Gap 13.4 mmol/L (6.8-13.8); BUN/Creatinine Ratio 8.4 (9.0-21.6); Bilirubin, Total 0.3 mg/dL (0.0-1.1); Blood Urea Nitrogen 7 mg/dL (3-23); Calcium * 8.9 mg/dL (7.9-10.9); Carbon Dioxide 25.4 mmol/L (24-32.6); Chloride 106 mmol/L (97-106); Glucose * 97 mg/dL (70-110); Potassium 3.8 mmol/L (3.4-4.6); Sodium 141 mmol/L (132-142); Total Protein 7.8 gm/dL (6.2-8.2)
[2017-04-17] MEDS ORDERED: METOCLOPRAMIDE HCL 5 MG/ML VIAL IV ONE (08:25)
[2017-04-17] MEDS ORDERED: diphenhydrAMINE HCL 50 MG/ML VIAL IV ONE (08:25)
[2017-04-17] MEDS ORDERED: NORMAL SALINE 1,000 ML IV ONE (08:25)
[2017-04-17] MEDS ORDERED: METOCLOPRAMIDE HCL 5 MG/ML VIAL ONE (08:28)
[2017-04-17] MEDS ORDERED: diphenhydrAMINE HCL 50 MG/ML VIAL ONE (08:28)
[2017-04-17 08:39] VITALS: BP 137/77
== END 2017-04-17 09:18 | disposition home or self-care (01) ==
LOC: ER 06:27
DX: G43.909 Migraine, unspecified, not intractable, without status migrainosus (principal); Z86.718 Personal history of other venous thrombosis and embolism; Z79.01 Long term (current) use of anticoagulants; F32.9 Major depressive disorder, single episode, unspecified

== ENCOUNTER → 2020-03-22 16:40 | Observation (INO) ==
[2020-03-21 13:49] LABS: Hematocrit 41.1 % (37.0-47.0); Hemoglobin 13.9 gm/dL (12.5-16.0); Mean Cell Volume 87.3 fl (78-100); Mean Corpuscular Hemoglobin 29.5 pg (27-31); Mean Corpuscular Hgb Conc 33.8 g/dl (32-36); Neutrophil # 5.3 K/mm3 (1.3-6.0); Neutrophil % 78.1 % (42-75.0); Platelet Count 131 K/mm3 (150-450); Red Blood Count 4.71 M/mm3 (4.2-5.4); Red Cell Distribution Width 12.3 % (11.5-14.0); White Blood Count 6.8 K/mm3 (4.0-10.5)
[2020-03-21 14:02] LABS: Anion Gap 13.8 mmol/L (6.8-13.8); BUN/Creatinine Ratio 4.5 (9.0-21.6); Bilirubin, Total 0.5 mg/dL (0.0-1.1); Ca. Corrected For Albumin 8.9 mg/dL (8.4-10.2); Calcium * 8.4 mg/dL (7.9-10.9); Carbon Dioxide 23.5 mmol/L (24-32.6); Potassium 3.3 mmol/L (3.4-4.6); Total Protein 6.7 gm/dL (6.2-8.2)
[2020-03-21] MEDS: NORMAL SALINE 1,000 ML IV PRN ×2 (14:42→22:22)
--- NOTE | 2020-03-21 16:27 | HP ---
History of Present Illness: Shellie Clinton is a 39-year-old female patient well-known to me who called me at this morning reporting fever to 104.4 degrees. She has had a PICC line and for approximately 6 months in the right arm. She was seen in the emergency room and had a CBC which showed a barely elevated white count and no shift in the differential. Her lactic acid was normal. Her urine was clear. Chest x-ray recently was unremarkable. I had her come to the hospital to be a direct admit to have the PICC line removed and the tip cultured. The blood culture done in the emergency room is growing and gram-negative bacillus and Rocephin has been started. They are to send the tip of the PICC line for culture as well. Last week she reported some swelling and sense of the right upper extremity being cold I was concerned about thrombus at that time. D-dimer however then was essentially normal (0.19), today's is 1.5. A CT with PE pr otocol of the chest was normal last week. No other abnormalities were found.. Given the absence of another nidus of infection I believe the PICC line is the culprit and it will be removed today. Medical History (Last Reviewed 03/21/20 @ 13:31 by Ambreen Kirk RN) Dehydration (Acute) Diarrhea (Acute) Major depression (Chronic) UTI (urinary tract infection) (Resolved) Repeat the Ua C&S Low back pain (Chronic) Abdominal bloating (Chronic) Gastroparesis (Chronic) Chest pain (Acute) Anaphylaxis (Resolved) Reacted to IV Acyclovir Nausea and vomiting (Acute) Diplopia (Acute) Fatigue (Chronic) Autoimmune disease (Chronic) Dizziness (Acute) Nausea (Acute) POTS (postural orthostatic tachycardia syndrome) (Chronic) Sleep apnea (Chronic) mild sleep apnea- rdi 5.9 events per hour, cpap at 7cm h20 Sinoatrial block (Acute) Plantar fasciitis (Chronic) RLS (restless legs syndrome) (Chronic) Colitis (Chronic) Inflammatory arthritis (Acute) FLORENCIO (generalized anxiety disorder) (Chronic) ADHD (Chronic) Lyme arthritis (Chronic) Polyarthralgia (Chronic) Sjogrens syndrome (Chronic) Raynaud disease (Chronic) Lyme disease (Chronic) Onset Date: 08/16/18 Per labs @ [facility]' started on doxycycline mono 100 mg bid and referred to infectious disease. Saw ID on Non-alcoholic fatty liver disease (Chronic) Endometriosis (Inactive) Cecal volvulus (Chronic) SVT (supraventricular tachycardia) (Chronic) Onset Date: 09/25/09 RLS (restless legs syndrome) (Chronic) Depression (Chronic) Seizures (Chronic) Started @ age 15, not currently on meds. Last meds taken 04/2009; last seizure 04/2003 Chronic fatigue EDS (Malaika-Danlos syndrome) Hemorrhoids hemorrhoid banding POTS (postural orthostatic tachycardia syndrome) Secondary hypothyroidism Vitamin B12 deficiency Vitamin D deficiency H/O idiopathic seizure Ankle instability right ankle Cecal volvulus DVT (deep venous thrombosis) Endometriosis Gastritis History of EKG [facility] 09/25/18- sinus 78 bpm, shirley 144, qrs 90, qt 390/444 History of hysteroscopy Onset Date: 03/13/16 With D&C Lumbar vertebral fracture Normal echocardiogram [facility]. ef 51%, no valvular abnormalities. 09/25/18 UTI (urinary tract infection) Ventral hernia Hx LEEP (loop electrosurgical excision procedure), cervix, Surgical History: Surgical History (Last Reviewed 03/21/20 @ 13:31 by Ambreen Kirk RN) H/O LEEP H/O hernia repair H/O reduction mammoplasty History of ankle surgery right ankle reconstruction History of esophagogastroduodenoscopy (EGD) Onset Date: 12/28/16 Hx of appendectomy Onset Date: 11/03/13 Hx of arthroscopy of left knee Onset Date: 06/03/14 Hx of cholecystectomy Onset Date: 06/06/06 Hx of colonoscopy 2013 normal, flex sig 2015 wnl, 2017 wnl but unable to reach small bowel Hx of hysterectomy, total Onset Date: 05/08/16 Hx of repair of right rotator cuff Onset Date: 11/15/99 Hx of right hemicolectomy Onset Date: 11/03/13 Hx of tubal ligation Onset Date: 04/11/14 Hx of ventral hernia repair 04/11/2015 Repaired with mesh Family History: Family History (Last Reviewed 03/21/20 @ 13:31 by Ambreen Kirk RN) Father CAD (coronary artery disease) Diabetes Hypertension Hyperlipidemia due to dietary fat intake Mother Hypertension Hyperlipidemia due to dietary fat intake CVA (cerebral vascular accident) DVT (deep venous thrombosis) Brother Depression Anxiety Social History: (Last Reviewed 03/21/20 @ 13:31 by Ambreen Kirk RN) Social History: Marital status: household members: spouse Highest education level completed: Professional school degre Service: No Tobacco: Smoking Status: Never smoker Alcohol: alcohol intake: never Substance Use: substance use type: does not use Dietary Habits: caffeine: Yes Review Of Systems (GEN) - Review of Systems Generalized/Overall Review: Present: Weakness, Chills, Fever, Malaise, Fatigue EENTM: Present: No Symptoms Reported Respiratory: Present: No Symptoms Reported. Absent: Cough, Shortness of Breath, Orthopnea, Stridor, Wheezing Cardiac: Present: No Symptoms Reported. Absent: Chest Pain Abdominal: Present: No Symptoms Reported Genitourinary: Present: No Symptoms Reported Musculoskeletal: Present: No Symptoms Reported Neurological: Present: No Symptoms Reported Skin: Present: No Symptoms Reported Endocrine: Present: Excessive Sweating Immunizations: IMMUNIZATION HX Immunizations Up to Date Yes History of Influenza Vaccine Yes Hx Pneumococcal Vaccination No Allergies/Adverse Reactions: Allergies Allergy/AdvReac Type Severity Reaction Status Date / Time Acyclovir Analogues Allergy Severe anaphylactic Verified 03/21/20 13:29 shock oats Allergy Severe Anaphylaxis Verified 03/21/20 13:29 peanut Allergy Severe Anaphylaxis Verified 03/21/20 13:29 lactase [From Dairy Aid] Allergy Mild DAIRY Verified 03/21/20 13:29 PRODUCTS CAUSE HIVES yeast, dried [yeast] Allergy Mild Hives Verified 03/21/20 13:29 alcohol Allergy Unknown Verified 03/21/20 13:29 prednisone Allergy GI Verified 03/21/20 13:29 BLEED/COLITIS vancomycin Allergy RED MAN Verified 03/21/20 13:29 SYNDROME bupropion HCl AdvReac Severe SEIZURES Verified 03/21/20 13:29 [From Wellbutrin] atomoxetine HCl AdvReac Intermediate CHEST Verified 03/21/20 13:29 [From Strattera] PAIN, DIZZINESS gluten AdvReac Intermediate MIGRAINES, Verified 03/21/20 13:29 CHEST TIGHTNESS paroxetine HCl [From Paxil] AdvReac Intermediate DYSPNEA Verified 03/21/20 13:29 wheat AdvReac Intermediate MIGRAINES, Verified 03/21/20 13:29 CHEST TIGHTNESS amoxicillin trihydrate AdvReac Mild GI DISTRESS Verified 03/21/20 13:29 [From Augmentin] potassium clavulanate AdvReac Mild GI DISTRESS Verified 03/21/20 13:29 [From Augmentin] Home Medications: HOME MEDICATIONS Saccharomyces boulardii 250 mg capsule 250 mg PO BID 02/26/19 [Last Taken Unknown] Hydrocortisone 10 mg PO DAILY 08/01/19 [Last Taken Unknown] promethazine 25 mg tablet 25 mg PO Q6H PRN #20 tab 09/21/19 [Last Taken Unknown] alprazolam 0.25 mg tablet 0.25 mg PO BID PRN #60 tab 11/02/19 [Last Taken Unknown] epinephrine 0.3 mg/0.3 mL injection, auto-injector 0.3 mg IM Q10-15M PRN #2 ea 12/29/19 [Last Taken Unknown] esomeprazole magnesium 40 mg capsule,delayed release 40 mg PO HS 12/29/19 [Last Taken Unknown] thyroid (pork) 90 mg tablet 90 mg PO DAILY 12/29/19 [Last Taken Unknown] topiramate 50 mg tablet 50 mg PO HS #30 tab 01/27/20 [Last Taken Unknown] acetaminophen 300 mg-codeine 60 mg tablet 1 tab PO Q6H PRN #120 tab 02/01/20 [Last Taken Unknown] apixaban 5 mg tablet 5 mg PO DAILY #30 tab 02/01/20 [Last Taken Unknown] Durable Medical Equipment See Rx Instructions .ROUTE .MEDSUPPLY #1 ea 02/08/20 [Last Taken Unknown] duloxetine 60 mg capsule,delayed release 60 mg PO DAILY #30 cap 02/08/20 [Last Taken Unknown] hydroxychloroquine 200 mg tablet 400 mg PO DAILY #60 tab 02/08/20 [Last Taken Unknown] ropinirole 2 mg tablet 2 mg PO HS 02/08/20 [Last Taken Unknown] vortioxetine 20 mg tablet 20 mg PO DAILY #30 tab 02/08/20 [Last Taken Unknown] IV infusion pump 0 .ROUTE .MEDSUPPLY #1 ea 03/07/20 [Last Taken Unknown] valacyclovir 1 gram tablet 1,000 mg PO TID #90 tab 03/10/20 [Last Taken Unknown] brexpiprazole 4 mg tablet 4 mg PO DAILY #30 tab 03/15/20 [Last Taken Unknown] Amitriptyline HCl [Elavil] 1 tab PO HS 03/21/20 [Last Taken Unknown] Baclofen 10 mg PO QID PRN 03/21/20 [Last Taken Unknown] Dextroamphetamine/Amphetamine [Dextroamp-Amphet ER 10 mg Cap] 10 mg PO BID 03/21/20 [Last Taken Unknown] Dicyclomine HCl [Bentyl] 10 mg PO QID PRN 03/21/20 [Last Taken Unknown] Ergocalciferol (Vitamin D2) [Vitamin D2] 50,000 unit PO Q7D 03/21/20 [Last Taken Unknown] Lactobacil 2-S.thermo-Bifido 1 [Vsl#3 Packet] 1 ea PO BID 03/21/20 [Last Taken Unknown] Metoprolol Succinate 50 mg PO HS 03/21/20 [Last Taken Unknown] Ondansetron HCl [Zofran] 1 - 2 tab PO TID PRN 03/21/20 [Last Taken Unknown] traZODone HCL [Trazodone HCl] 1 tab PO HS 03/21/20 [Last Taken Unknown] Exam - Exam Vital Signs: Vital Signs - Last Taken Temp 37.3 C 03/21/20 13:31 Pulse 110 H 03/21/20 13:31 Resp 18 03/21/20 13:31 BP 104/69 03/21/20 13:31 Pulse Ox 95 03/21/20 13:31 Constitutional: Present: Alert, Oriented x3, Cooperative, Well developed, Well nourished, Mild distress, Middle aged, Obese ENT Exam: Present: normal ENT inspection, hearing grossly normal, pharynx normal, TMs normal Eye Exam: bilateral eye: normal inspection, PERRL, EOMI Neck: Present: non-tender, full range of motion, supple, normal inspection Back Exam: Present: normal inspection, no CVA tenderness, no vertebral tenderness Breasts: Present: Exam deferred, Nontender Respiratory: Present: chest non-tender, lungs clear, normal breath sounds, no respiratory distress, no accessory muscle use Cardiovascular/Chest: Present: normal peripheral pulses, regular rate, rhythm, no chest tenderness, no edema, no gallop, no JVD, no murmur, no rub Peripheral Pulses: carotid (R): 2+, carotid (L): 2+, radial (R): 2+, radial (L): 2+ Abdomen: Present: Normal bowel sounds, soft, nontender, nondistended, no rebound tenderness, no hepatospenomegaly, no masses, obese /Rectal: Present: Exam deferred, External genitalia normal Extremity: Present: normal range of motion, non-tender, normal inspection, no pedal edema, no calf tenderness, normal capillary refill Skin Exam: Present: normal color, warm/dry, no cyanosis Lymphatic: Present: no adenopathy, axilla node tender (R) Neurologic: Present: story writer II-XII nml as tested, no motor/sensory deficits, alert, normal mood/affect, oriented x 3 Appearance: Present: appropriate appearance, appropriate insight, neat, no xin ry impairment Eye contact: Present: cooperative, good eye contact, normal speech Thoughts: Present: normal thought pattern, no apparent hallucination Diagnostic Studies: Abnormal Lab Results 03/21/20 03/21/20 03/21/20 Range/Units 13:44 13:44 13:44 Plt Count 131 L (150-450) K/mm3 Immature Gran % (Auto) 0.70 H (0.001-0.429) % Immature Gran # (Auto) 0.05 H (0.000-0.0310) K/mm3 Neutrophils % 78.1 H (42-75.0) % Lymphocytes % 10.5 L (20-51) % Monocytes % 10.2 H (0.0-9) % Lymphocytes # 0.71 L (1.5-3.5) k/mm3 D-Dimer 1.55 H (0.19-0.49) ug/mL Potassium 3.3 L (3.4-4.6) mmol/L Carbon Dioxide 23.5 L (24-32.6) mmol/L BUN/Creatinine Ratio 4.5 L (9.0-21.6) AST 95 H (0-48) U/L ALT 114 H (19-67) U/L Albumin 3.0 L (3.4-5.0) gm/dl Laboratory Results WBC 6.8 K/mm3 (4.0-10.5) D 03/21/20 13:44 RBC 4.71 M/mm3 (4.2-5.4) 03/21/20 13:44 Hgb 13.9 gm/dL (12.5-16.0) 03/21/20 13:44 Hct 41.1 % (37.0-47.0) 03/21/20 13:44 MCV 87.3 fl (78-100) 03/21/20 13:44 MCH 29.5 pg (27-31) 03/21/20 13:44 MCHC 33.8 g/dl (32-36) 03/21/20 13:44 RDW 12.3 % (11.5-14.0) 03/21/20 13:44 Plt Count 131 K/mm3 (150-450) L 03/21/20 13:44 MPV 10.0 fl (8-12.5) 03/21/20 13:44 Immature Gran % (Auto) 0.70 % (0.001-0.429) H 03/21/20 13:44 Immature Gran # (Auto) 0.05 K/mm3 (0.000-0.0310) H 03/21/20 13:44 Neutrophils % 78.1 % (42-75.0) H 03/21/20 13:44 Lymphocytes % 10.5 % (20-51) L 03/21/20 13:44 Monocytes % 10.2 % (0.0-9) H 03/21/20 13:44 Eosinophils % 0.1 % (0.0-3.0) 03/21/20 13:44 Basophils % 0.4 % (0.0-1.0) 03/21/20 13:44 Nucleated RBC % 0.0 k/mm3 (0-1) 03/21/20 13:44 Neutrophils # 5.3 K/mm3 (1.3-6.0) 03/21/20 13:44 Lymphocytes # 0.71 k/mm3 (1.5-3.5) L 03/21/20 13:44 Monocytes # 0.7 k/mm3 (0.0-1.0) 03/21/20 13:44 Eosinophils # 0.0 k/mm3 (0.0-0.7) 03/21/20 13:44 Absolute Basophils 0.0 k/mm3 (0.0-0.1) 03/21/20 13:44 D-Dimer 1.55 ug/mL (0.19-0.49) H 03/21/20 13:44 Sodium 139 mmol/L (132-142) 03/21/20 13:44 Plasma Sodium 139 mmol/L (130-142) 03/21/20 13:44 Potassium 3.3 mmol/L (3.4-4.6) L 03/21/20 13:44 Chloride 105 mmol/L (97-106) 03/21/20 13:44 Carbon Dioxide 23.5 mmol/L (24-32.6) L 03/21/20 13:44 Anion Gap 13.8 mmol/L (6.8-13.8) 03/21/20 13:44 BUN 4 mg/dL (3-23) 03/21/20 13:44 Creatinine 0.88 mg/dL (0.4-1.4) 03/21/20 13:44 Est GFR (Non-Af Amer) 76 mL/min (60-130) 03/21/20 13:44 BUN/Creatinine Ratio 4.5 (9.0-21.6) L 03/21/20 13:44 Random Glucose 99 mg/dL (70-110) 03/21/20 13:44 Lactic Acid, Venous 0.4 mmol/L (0.4-2.0) 03/21/20 13:44 Calcium 8.4 mg/dL (7.9-10.9) 03/21/20 13:44 Calcium Adj for Albumin 8.9 mg/dL (8.4-10.2) 03/21/20 13:44 Total Bilirubin 0.5 mg/dL (0.0-1.1) 03/21/20 13:44 AST 95 U/L (0-48) H 03/21/20 13:44 ALT 114 U/L (19-67) H 03/21/20 13:44 Alkaline Phosphatase 57 U/L (50-170) 03/21/20 13:44 Total Protein 6.7 gm/dL (6.2-8.2) 03/21/20 13:44 Albumin 3.0 gm/dl (3.4-5.0) L 03/21/20 13:44 Assessment/Plan - Narrative Narrative: 1. Remove PICC line 2. Start peripheral IV 3. Start Rocephin 1 g IV daily 4. Dr. Ramirez to consult Re: Antibiotics 5. Dr. Turpin to consult regarding elevated d-dimer, bacteremia 6. Repeat lab tomorrow morning - Assessment/Plan (1) D-dimer, elevated Problem: Acute (2) PICC line infection Problem: Acute Qualifiers: Encounter type: initial encounter Qualified Code(s): T80.219A - Unspecified infection due to central venous catheter, initial encounter (3) Bacteremia associated with intravascular line Problem: Acute Qualifiers: Encounter type: initial encounter Qualified Code(s): T82.7XXA - Infection and inflammatory reaction due to other cardiac and vascular devices, implants and grafts, initial encounter; R78.81 - Bacteremia
[2020-03-21] MEDS: ACETAMINOPHEN WITH CODEINE 1 EACH TABLET PO PRN (17:05)
[2020-03-21] MEDS: valACYclovir HCL 500 MG TABLET PO SCH (17:06)
[2020-03-21] MEDS: SACCHAROMYCES BOULARDII 250 MG CAPSULE PO SCH (21:01)
[2020-03-21] MEDS: DEXTROAMP AMPHET PO SCH (21:06)
[2020-03-22] MEDS: ACETAMINOPHEN WITH CODEINE 1 EACH TABLET PO PRN ×2 (02:55→12:07)
[2020-03-22 06:17] LABS: Hematocrit 37.2 % (37.0-47.0); Hemoglobin 12.5 gm/dL (12.5-16.0); Mean Cell Volume 88.2 fl (78-100); Mean Corpuscular Hemoglobin 29.6 pg (27-31); Mean Corpuscular Hgb Conc 33.6 g/dl (32-36); Mean Platelet Volume 10.2 fl (8-12.5); Neutrophil # 1.9 K/mm3 (1.3-6.0); Neutrophil % 47.5 % (42-75.0); Platelet Count 125 K/mm3 (150-450); Red Blood Count 4.22 M/mm3 (4.2-5.4); Red Cell Distribution Width 12.6 % (11.5-14.0); White Blood Count 4.1 K/mm3 (4.0-10.5)
[2020-03-22 06:31] LABS: Albumin * 2.7 gm/dl (3.4-5.0); Anion Gap 14.3 mmol/L (6.8-13.8); BUN/Creatinine Ratio 3.3 (9.0-21.6); Bilirubin, Total 0.2 mg/dL (0.0-1.1); Ca. Corrected For Albumin 8.2 mg/dL (8.4-10.2); Calcium * 7.5 mg/dL (7.9-10.9); Carbon Dioxide 23.3 mmol/L (24-32.6); Potassium 3.6 mmol/L (3.4-4.6)
[2020-03-22] MEDS: DEXTROAMP AMPHET PO SCH (08:45)
[2020-03-22] MEDS: SACCHAROMYCES BOULARDII 250 MG CAPSULE PO SCH (08:46)
[2020-03-22] MEDS: valACYclovir HCL 500 MG TABLET PO SCH ×2 (08:49→12:06)
--- NOTE | 2020-03-22 11:55 | CONS ---
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 Moore of the [facility]. She had a chronic PICC line in place for the past 6 months for daily IV infusions of fluids and vitamins as she does not absorb water and nutrients well through her GI tract. Yesterday she began having fever and Dr. Moore had her go to the hospital for labs. Blood cultures were obtained and this morning she got a call from Dr. Moore that her preliminary cultures were growing Gram Negative Rods and she needed to call her Primary Care Provider, Dr. Booker, for direct admit. This was done and she was admitted and started on rocephin. She reported shortness of breath and a D-dimer was performed, it came back a little elevated at 1.5. She has been on Eliquis due to history of thromboembolism in the past. Her PICC line was removed and the tip was ordered to be cultured. Due to her complicated case and history Dr. Booker consulted help in management. Source: patient Exam Limitations: no limitations - History of Present Illness Allergies/Adverse Reactions: Allergies Acyclovir Analogues Allergy (Severe, Verified 03/21/20 13:29) anaphylactic shock oats Allergy (Severe, Verified 03/21/20 13:29) Anaphylaxis peanut Allergy (Severe, Verified 03/21/20 13:29) Anaphylaxis lactase [From Dairy Aid] Allergy (Mild, Verified 03/21/20 13:29) DAIRY PRODUCTS CAUSE HIVES yeast, dried [yeast] Allergy (Mild, Verified 03/21/20 13:29) Hives alcohol Allergy (Unknown, Verified 03/21/20 13:29) hives, topical okay prednisone Allergy (Verified 03/21/20 13:29) GI BLEED/COLITIS vancomycin Allergy (Verified 03/21/20 13:29) RED MAN SYNDROME IF PREMEDICATE CAN TOLERATE bupropion HCl [From Wellbutrin] Adverse Reaction (Severe, Verified 03/21/20 13:29) SEIZURES atomoxetine HCl [From Strattera] Adverse Reaction (Intermediate, Verified 03/21/20 13:29) CHEST PAIN, DIZZINESS gluten Adverse Reaction (Intermediate, Verified 03/21/20 13:29) MIGRAINES, CHEST TIGHTNESS paroxetine HCl [From Paxil] Adverse Reaction (Intermediate, Verified 03/21/20 13:29) DYSPNEA wheat Adverse Reaction (Intermediate, Verified 03/21/20 13:29) MIGRAINES, CHEST TIGHTNESS amoxicillin trihydrate [From Augmentin] Adverse Reaction (Mild, Verified 03/21/20 13:29) GI DISTRESS potassium clavulanate [From Augmentin] Adverse Reaction (Mild, Verified 03/21/20 13:29) GI DISTRESS Home Medications: Home Medications Medication Instructions Recorded Last Taken Saccharomyces boulardii 250 mg 250 mg PO BID 02/26/19 Unknown capsule Hydrocortisone 10 mg PO DAILY 08/01/19 Unknown promethazine 25 mg tablet 25 mg PO Q6H PRN #20 tab 09/21/19 Unknown alprazolam 0.25 mg tablet 0.25 mg PO BID PRN #60 tab 11/02/19 Unknown epinephrine 0.3 mg/0.3 mL 0.3 mg IM Q10-15M PRN #2 ea 12/29/19 Unknown injection, auto-injector esomeprazole magnesium 40 mg 40 mg PO HS 12/29/19 Unknown capsule,delayed release thyroid (pork) 90 mg tablet 90 mg PO DAILY 12/29/19 Unknown topiramate 50 mg tablet 50 mg PO HS #30 tab 01/27/20 Unknown acetaminophen 300 mg-codeine 60 mg 1 tab PO Q6H PRN #120 tab 02/01/20 Unknown tablet apixaban 5 mg tablet 5 mg PO DAILY #30 tab 02/01/20 Unknown Durable Medical Equipment See Rx Instructions .ROUTE 02/08/20 Unknown .MEDSUPPLY #1 ea duloxetine 60 mg capsule,delayed 60 mg PO DAILY #30 cap 02/08/20 Unknown release hydroxychloroquine 200 mg tablet 400 mg PO DAILY #60 tab 02/08/20 Unknown ropinirole 2 mg tablet 2 mg PO HS 02/08/20 Unknown vortioxetine 20 mg tablet 20 mg PO DAILY #30 tab 02/08/20 Unknown IV infusion pump 0 .ROUTE .MEDSUPPLY #1 ea 03/07/20 Unknown valacyclovir 1 gram tablet 1,000 mg PO TID #90 tab 03/10/20 Unknown brexpiprazole 4 mg tablet 4 mg PO DAILY #30 tab 03/15/20 Unknown Amitriptyline HCl [Elavil] 1 tab PO HS 03/21/20 Unknown Baclofen 10 mg PO QID PRN 03/21/20 Unknown Dextroamphetamine/Amphetamine 10 mg PO BID 03/21/20 Unknown [Dextroamp-Amphet ER 10 mg Cap] Dicyclomine HCl [Bentyl] 10 mg PO QID PRN 03/21/20 Unknown Ergocalciferol (Vitamin D2) 50,000 unit PO Q7D 03/21/20 Unknown [Vitamin D2] Lactobacil 2-S.thermo-Bifido 1 1 ea PO BID 03/21/20 Unknown [Vsl#3 Packet] Metoprolol Succinate 50 mg PO HS 03/21/20 Unknown Ondansetron HCl [Zofran] 1 - 2 tab PO TID PRN 03/21/20 Unknown traZODone HCL [Trazodone HCl] 1 tab PO HS 03/21/20 Unknown Procedures Excision of Descending Colon, Via Natural or Artificial Opening Endoscopic, Diagnostic (12/28/16) Excision of Right Ankle Joint, Percutaneous Endoscopic Approach (01/10/17) Excision of Stomach, Via Natural or Artificial Opening Endoscopic, Diagnostic (12/28/16) Extraction of Endometrium, Via Natural or Artificial Opening Endoscopic (03/13/16) Fluoroscopy of Right Upper Extremity Veins, Guidance (02/25/17) Insertion of Infusion Device into Left Axillary Vein, Percutaneous Approach (02/21/17) Insertion of Infusion Device into Right Basilic Vein, Percutaneous Approach (02/25/17) Other open incisional hernia repair with graft or prosthesis (04/11/15) Reattachment of Right Ankle Region, Open Approach (01/10/17) Reattachment of Right Ankle Tendon, Open Approach (01/10/17) Repair Right Hand Skin, External Approach (06/11/16) Resection of Cervix, Via Natural or Artificial Opening (05/08/16) Resection of Uterus, Via Natural or Artificial Opening (05/08/16) Medications - Medications Current Medications: Current Medications Acetaminophen/Codeine Phosphate (Tylenol-Codeine 300 Mg/30 Mg) 2 each PO Q6H PRN PRN Reason: Pain Stop: 04/20/20 14:07 Last Admin: 03/22/20 02:55 Dose: 2 each Documented by: Amitriptyline HCl (Elavil) 25 mg PO HS NIKITA Stop: 04/20/20 21:01 Last Admin: 03/21/20 20:59 Dose: 25 mg Documented by: Apixaban (Eliquis) 5 mg PO DAILY [facility] Stop: 04/21/20 09:01 Last Admin: 03/22/20 08:46 Dose: 5 mg Documented by: Duloxetine HCl (Cymbalta) 60 mg PO DAILY [facility] Stop: 04/21/20 09:01 Last Admin: 03/22/20 08:45 Dose: 60 mg Documented by: Hydrocortisone (Hydrocortisone) 10 mg PO DAILY [facility] Stop: 04/21/20 09:01 Last Admin: 03/22/20 08:47 Dose: 10 mg Documented by: Hydroxychloroquine Sulfate (Plaquenil) 400 mg PO DAILY [facility] Stop: 04/21/20 09:01 Last Admin: 03/22/20 08:48 Dose: 400 mg Documented by: Sodium Chloride (Sodium Chloride 0.9%) 1,000 mls @ 125 mls/hr IV .Q8H PRN PRN Reason: HYDRATION Last Infusion: 03/22/20 06:40 Dose: Infused Documented by: Ceftriaxone Sodium 1,000 mg/ (Dextrose/Water) 100 mls @ 200 mls/hr IV Q24H [facility]; Protocol Stop: 04/20/20 14:16 Last Infusion: 03/21/20 15:20 Dose: Infused Documented by: Metoprolol Succinate (Toprol Xl) 50 mg PO [facility] Stop: 04/20/20 21:01 Last Admin: 03/21/20 21:02 Dose: 50 mg Documented by: Rexulti 4 Mg 4 mg PO DAILY [facility] Stop: 04/21/20 09:01 Last Admin: 03/22/20 08:44 Dose: Not Given Documented by: Dextroamp-Amphet Er (10 Mg Cap) 10 mg PO BID [facility] Stop: 04/20/20 21:01 Last Admin: 03/22/20 08:45 Dose: Not Given Documented by: Pantoprazole Sodium (Protonix) 40 mg PO [facility] Stop: 04/20/20 21:01 Last Admin: 03/21/20 20:59 Dose: 40 mg Documented by: Ropinirole HCl (Requip) 2 mg PO [facility] Stop: 04/20/20 21:01 Last Admin: 03/21/20 20:59 Dose: 2 mg Documented by: Saccharomyces Boulardii (Florastor) 250 mg PO BID NIKITA Stop: 04/20/20 21:01 Last Admin: 03/22/20 08:46 Dose: 250 mg Documented by: Thyroid (Geary Thyroid) 90 mg PO DAILY [facility] Stop: 04/21/20 09:01 Last Admin: 03/22/20 08:44 Dose: 90 mg Documented by: Topiramate (Topamax) 50 mg PO HS NIKITA Stop: 04/20/20 21:01 Last Admin: 03/21/20 21:00 Dose: 50 mg Documented by: Trazodone HCl (Desyrel) 100 mg PO HS NIKITA Stop: 04/20/20 21:01 Last Admin: 03/21/20 20:58 Dose: 100 mg Documented by: Valacyclovir HCl (Valtrex) 1,000 mg PO TID NIKITA Stop: 04/20/20 17:01 Last Admin: 03/22/20 08:49 Dose: 1,000 mg Documented by: Review of Systems - Review of Systems Generalized/Overall Review: Present: Weakness, Chills, Fever, Malaise, Fatigue EENTM: Absent: Eye Pain, Blurred Vision Respiratory: Present: Shortness of Breath. Absent: Cough, Wheezing Cardiac: Absent: Chest Pain, Edema Abdominal: Absent: Nausea, Vomiting, Abdominal Pain, Constipation Genitourinary: Absent: Burning, Itching, Urgency, Frequency Musculoskeletal: Present: Other - She feels a firm area in her upper right arm where the PICC line was located. Neurological: Present: Headache. Absent: Seizure, Tingling Skin: Absent: Lesions, Rash Physical Examination - Exam Vital Signs: Vital Signs - Last Taken Temp 36.6 C 03/22/20 10:54 Pulse 75 03/22/20 10:54 Resp 18 03/22/20 10:54 BP 103/69 03/22/20 10:54 Pulse Ox 99 03/22/20 10:54 O2 Oxygen Delivery Method Room Air Constitutional: Present: Alert, Oriented x3, Cooperative ENT Exam: Present: hearing grossly normal Eye Exam: bilateral eye: normal inspection Respiratory: Present: lungs clear, normal breath sounds Cardiovascular/Chest: Present: regular rate, rhythm, no murmur Abdomen: Present: Normal bowel sounds, soft, nontender, nondistended Skin Exam: Present: normal color, warm/dry, no cyanosis, other - Right extremity has no erythema or swelling. Palpable cord in right upper arm Appearance: Present: appropriate appearance, appropriate insight Eye contact: Present: cooperative, good eye contact, normal speech - Results and Findings: Lab/Microbiology results last 24 hrs: Abnormal/Pending Laboratory Last 24 HRS 03/22/20 03/22/20 03/22/20 06:13 06:13 06:13 Plt Count 125 L Immature Gran % (Auto) 0.50 H Immature Gran # (Auto) Neutrophils % Lymphocytes % Monocytes % 11.7 H Eosinophils % 3.4 H Basophils % 1.2 H Lymphocytes # 1.46 L D-Dimer 1.24 H Potassium Chloride 108 H Carbon Dioxide 23.3 L Anion Gap 14.3 H BUN/Creatinine Ratio 3.3 L Random Glucose 129 H D Calcium 7.5 L Calcium Adj for Albumin 8.2 L AST 69 H ALT 119 H Total Protein 6.0 L Albumin 2.7 L 03/21/20 03/21/20 03/21/20 13:44 13:44 13:44 Plt Count 131 L Immature Gran % (Auto) 0.70 H Immature Gran # (Auto) 0.05 H Neutrophils % 78.1 H Lymphocytes % 10.5 L Monocytes % 10.2 H Eosinophils % Basophils % Lymphocytes # 0.71 L D-Dimer 1.55 H Potassium 3.3 L Chloride Carbon Dioxide 23.5 L Anion Gap BUN/Creatinine Ratio 4.5 L Random Glucose Calcium Calcium Adj for Albumin AST 95 H ALT 114 H Total Protein Albumin 3.0 L - Assessments/Findings (1) Bacteremia associated with intravascular line Diagnosis(s): Blood culture x 2 growing gram negative lily from yesterday. Started on Rocephin. Agree with this treatment until culture and sensitivity final return. There are currently no indicators of sepsis. She has not had a fever here and does not appear septic. I would recommend 2 weeks of oral antibiotics based on culture sensitivity. She is discussing getting her PICC line replaced with a port. I would leave this decision to Dr. Moore as I would not recommend one being placed at this time with active bacteremia. She should be able to take oral antibiotics unless sensitivity indicates otherwise. Problem: Acute Qualifiers: Encounter type: initial encounter Qualified Code(s): T82.7XXA - Infection and inflammatory reaction due to other cardiac and vascular devices, implants and grafts, initial encounter; R78.81 - Bacteremia (2) D-dimer, elevated Diagnosis(s): Elevated D-dimer is likely related to bacteremia. I do not see clinical evidence of DVT, especially given that she has been on Eliquis the change of developing a thromboembolism is low. She does not need Chest CT or Venous duplex unless symptoms or exam findings change. Problem: Acute
--- NOTE | 2020-03-22 16:22 | DS ---
(1) PICC line infection Problem: Acute Qualifiers: Encounter type: initial encounter Qualified Code(s): T80.219A - Unspecified infection due to central venous catheter, initial encounter (2) Bacteremia associated with intravascular line Problem: Acute Qualifiers: Encounter type: initial encounter Qualified Code(s): T82.7XXA - Infection and inflammatory reaction due to other cardiac and vascular devices, implants and grafts, initial encounter; R78.81 - Bacteremia (3) D-dimer, elevated Problem: Acute Date of Discharge:: 03/22/20 Hospital Course: Shellie Clinton is a 39-year-old female patient well-known to me with multiple medical issues. She had developed a fever about 48 hours before being admitted. She has had an indwelling PICC line in the right antecubital fossa for about 6 months. She has been having increased headaches for the past couple of weeks. She then started having fever and shaking chills. The d-dimer is also increased from normal to 1.5. That dropped to 1.2 this morning. I elected to have the PICC line removed because the bacteremia is almost certainly being seeded from that. It is a Gram negative bacillus consistent with Klebsiella and grew out of both test tube cultures. She is received Rocephin 1 g IV piggyback twice since admission. She has been afebrile today and feeling quite a bit better already. I am reluctant to start her on oral antibiotic because of her recent C. difficile infection history. She also has a history of recent thrush and vulvovaginitis from yeast. I will contact her infectious disease doctor tomorrow and see if he thinks we need to continue antibiotics or not and if so whether this should be parenteral or p.o. He is at [facility]. At this time she is feeling quite a bit better and headache free. She has eaten well and has been up and about without difficulty. Her disposition is improved and her prognosis is good. Thank you Dr. Turpin for consulting in the medical management of this patient. Thank you Dr. Ramirez for consulting Re: IV antibiotic management. Procedures Performed: see notes below - Removal of PICC line Results and Findings: Lab Pending Results 03/21/20 13:44: D-Dimer 1.55 H 03/21/20 13:44: WBC 6.8 D, RBC 4.71, Hgb 13.9, Hct 41.1, MCV 87.3, MCH 29.5, MCHC 33.8, RDW 12.3, Plt Count 131 L, MPV 10.0, Immature Gran % (Auto) 0.70 H, Immature Gran # (Auto) 0.05 H, Neutrophils % 78.1 H, Lymphocytes % 10.5 L, Monocytes % 10.2 H, Eosinophils % 0.1, Basophils % 0.4, Nucleated RBC % 0.0, Neutrophils # 5.3, Lymphocytes # 0.71 L, Monocytes # 0.7, Eosinophils # 0.0, Absolute Basophils 0.0 03/21/20 13:44: Sodium 139, Plasma Sodium 139, Potassium 3.3 L, Chloride 105, Carbon Dioxide 23.5 L, Anion Gap 13.8, BUN 4, Creatinine 0.88, Est GFR (Non-Af Amer) 76, BUN/Creatinine Ratio 4.5 L, Random Glucose 99, Calcium 8.4, Calcium Adj for Albumin 8.9, Total Bilirubin 0.5, AST 95 H, ALT 114 H, Alkaline Phosphatase 57, Total Protein 6.7, Albumin 3.0 L 03/21/20 13:44: Lactic Acid, Venous 0.4 03/22/20 06:13: WBC 4.1 D, RBC 4.22, Hgb 12.5, Hct 37.2, MCV 88.2, MCH 29.6, MCHC 33.6, RDW 12.6, Plt Count 125 L, MPV 10.2, Immature Gran % (Auto) 0.50 H, Immature Gran # (Auto) 0.02, Neutrophils % 47.5, Lymphocytes % 35.7, Monocytes % 11.7 H, Eosinophils % 3.4 H, Basophils % 1.2 H, Nucleated RBC % 0.0, Neutrophils # 1.9, Lymphocytes # 1.46 L, Monocytes # 0.5, Eosinophils # 0.1, Absolute Basophils 0.1 03/22/20 06:13: Sodium 142, Plasma Sodium 142, Potassium 3.6, Chloride 108 H, Carbon Dioxide 23.3 L, Anion Gap 14.3 H, BUN 3, Creatinine 0.90, Est GFR (Non-Af Amer) 74, BUN/Creatinine Ratio 3.3 L, Random Glucose 129 H D, Calcium 7.5 L, Calcium Adj for Albumin 8.2 L, Total Bilirubin 0.2, AST 69 H, ALT 119 H, Alkaline Phosphatase 54, Total Protein 6.0 L, Albumin 2.7 L 03/22/20 06:13: D-Dimer 1.24 H Discharge Location: Home Disposition: Home self-care Condition: Good Face to Face Encounter completed per [facility] Guidelines: No Discharge Activity: Activity as tolerated Discharge Diet: General/regular food Referrals: Gelacio Booker DO [Primary Care Provider] - Complete Home Medications List: Complete Home Medication List: Saccharomyces boulardii 250 mg capsule 250 mg PO BID 02/26/19 Hydrocortisone 10 mg PO DAILY 08/01/19 promethazine 25 mg tablet 25 mg PO Q6H PRN #20 tab 09/21/19 alprazolam 0.25 mg tablet 0.25 mg PO BID PRN #60 tab 11/02/19 epinephrine 0.3 mg/0.3 mL injection, auto-injector 0.3 mg IM Q10-15M PRN #2 ea 12/29/19 esomeprazole magnesium 40 mg capsule,delayed release 40 mg PO HS 12/29/19 thyroid (pork) 90 mg tablet 90 mg PO DAILY 12/29/19 topiramate 50 mg tablet 50 mg PO HS #30 tab 01/27/20 acetaminophen 300 mg-codeine 60 mg tablet 1 tab PO Q6H PRN #120 tab 02/01/20 apixaban 5 mg tablet 5 mg PO DAILY #30 tab 02/01/20 Durable Medical Equipment See Rx Instructions .ROUTE .MEDSUPPLY #1 ea 02/08/20 duloxetine 60 mg capsule,delayed release 60 mg PO DAILY #30 cap 02/08/20 hydroxychloroquine 200 mg tablet 400 mg PO DAILY #60 tab 02/08/20 ropinirole 2 mg tablet 2 mg PO HS 02/08/20 vortioxetine 20 mg tablet 20 mg PO DAILY #30 tab 02/08/20 valacyclovir 1 gram tablet 1,000 mg PO TID #90 tab 03/10/20 brexpiprazole 4 mg tablet 4 mg PO DAILY #30 tab 03/15/20 Amitriptyline HCl [Elavil] 1 tab PO HS 03/21/20 Baclofen 10 mg PO QID PRN 03/21/20 Dextroamphetamine/Amphetamine [Dextroamp-Amphet ER 10 mg Cap] 10 mg PO BID 03/21/20 Dicyclomine HCl [Bentyl] 10 mg PO QID PRN 03/21/20 Ergocalciferol (Vitamin D2) [Vitamin D2] 50,000 unit PO Q7D 03/21/20 Lactobacil 2-S.thermo-Bifido 1 [Vsl#3 Packet] 1 ea PO BID 03/21/20 Metoprolol Succinate 50 mg PO HS 03/21/20 Ondansetron HCl [Zofran] 1 - 2 tab PO TID PRN 03/21/20 traZODone HCL [Trazodone HCl] 1 tab PO HS 03/21/20 Forms: Patient Portal Registration
[2020-03-22 16:27] VITALS: BP 109/76
[~2020-03-22 16:40] MED LIST changes: +ALPRAZolam 0.25 MG TABLET PO PRN; +AMITRIPTYLINE HCL 25 MG TABLET PO SCH; +APIXABAN 5 MG TABLET PO SCH; +BACLOFEN 10 MG TABLET PO PRN; +DICYCLOMINE HCL 10 MG CAPSULE PO PRN; +DULoxetine HCL 30 MG CAPSULE.SA PO SCH; +EPINEPHrine 0.3 MG DISP.SYRIN IM PRN; +ERGOCALCIFEROL 50000 UNIT TABLET PO SCH; +HYDROCORTISONE 5 MG TABLET PO SCH; +HYDROXYCHLOROQUINE SULFATE 200 MG TABLET PO SCH; +KETOROLAC TROMETHAMINE 30 MG/ML VIAL IV ONE; +METOPROLOL SUCCINATE 50 MG TABLET.SA PO SCH; +ONDANSETRON HCL 4 MG TABLET PO PRN; +ONDANSETRON HCL/PF 2 MG/ML VIAL IV ONE; +PANTOPRAZOLE SODIUM 40 MG TABLET.EC PO SCH; +PROMETHAZINE HCL 25 MG TABLET PO PRN; +REXULTI 4 MG PO SCH; -RINGERS SOLUTION,LACTATED 1,000 ML IV PRN; +THYROID,PORK 60 MG TABLET PO SCH; +TOPIRAMATE 50 MG TABLET PO SCH; -ceFAZolin SODIUM 1 GM VIAL IV PRN; +diphenhydrAMINE HCL 50 MG/ML VIAL IV ONE; +rOPINIRole HCL 1 MG TABLET PO SCH; +traZODone HCL 50 MG TABLET PO SCH
== END | disposition home or self-care (01) ==
LOC: MS
PROVIDERS: ADMIT Family Medicine; ATTEND Family Medicine
DX: K31.84 Gastroparesis; T80.211A Bloodstream infection due to central venous catheter, initial encounter; B96.1 Klebsiella pneumoniae [K. pneumoniae] as the cause of diseases classified elsewhere; Z86.718 Personal history of other venous thrombosis and embolism; Y71.1 Therapeutic (nonsurgical) and rehabilitative cardiovascular devices associated with adverse incidents; I49.8 Other specified cardiac arrhythmias; T82.7XXA Infection and inflammatory reaction due to other cardiac and vascular devices, implants and grafts, initial encounter; A69.29 Other conditions associated with Lyme disease; Z79.01 Long term (current) use of anticoagulants
CPT/HCPCS: 36415; 80053; 83605; 85025; 85379; 87070; 87077; 87186; 96365; 96366; 96375; G0378; J2405